=== PATIENT | female | born 1950 | race Caucasian/White ===

== ENCOUNTER 2020-09-17 17:11 | Emergency (ER) | payer MEDICARE ==
[~2020-09-17] VITALS: Ht 167.6 cm; Wt 63.5 kg
[2020-09-17 17:22] VITALS: BP 142/105
[2020-09-17] MEDS ORDERED: DIVA-78 PO (17:42)
--- NOTE | 2020-09-17 17:50 | NUR ---
Patient discharged to home in stable condition. Written and verbal after care instructions given. Patient verbalizes understanding of instruction.
== END 2020-09-17 17:50 | disposition home or self-care (01) ==
LOC: ER 17:21
DX: Z76.0 Encounter for issue of repeat prescription (principal); I10 Essential (primary) hypertension; Z86.73 Personal history of transient ischemic attack (TIA), and cerebral infarction without residual deficits

== ENCOUNTER 2020-09-28 13:16 | Inpatient (IN) | payer MEDICARE ==
[~2020-09-28] VITALS: Ht 167.6 cm; Wt 53.2 kg
[~2020-09-28 13:16] MED LIST: DIVA-78 PO
--- NOTE | 2020-09-28 13:25 | NUR ---
BIB [facility],SISTER CALLED 911 AFTER SHE BECAME AGITATED/COMBATIVE UPON GETTING INTO THEIR CAR. THE PATIENT IS ALERT AND ORIENTED TO HER NAME. DENIES PAIN. IN ROOM AIR AND DENIES SOB. RESPIRATION REGULAR AND UNLABORED. WARM BLANKET PROVIDED FOR COMFORT.
[2020-09-28 14:28] LABS: BASOPHILS # (AUTO) 0.1 /CMM (0.0-0.2); BASOPHILS % (AUTO) 1.1 % (0.0-2.0); HEMATOCRIT 46 % (33-45); HEMOGLOBIN 15.3 g/dL (11.5-14.8); MONOCYTES # (AUTO) 1.2 /CMM (0.1-1.30)
[2020-09-28 14:30] LABS: EOSINOPHILS % (AUTO) 2.9 % (0.0-6.0); LYMPHOCYTES # (AUTO) 0.9 /CMM (0.8-4.8); LYMPHOCYTES % (AUTO) 10.1 % (20.0-44.0); MEAN CORPUSCULAR HGB CONC 33 g/dl (31.0-36.0); MEAN CORPUSCULAR VOLUME 96 fL (82-100); MONOCYTES % (AUTO) 13.8 % (2.0-12.0); NEUTROPHILS # (AUTO) 6.4 /CMM (1.8-8.9); NEUTROPHILS % (AUTO) 72.1 % (43.0-81.0); PLATELET COUNT (AUTO) 145 /CMM (150-450); RED BLOOD CELL COUNT(AUTO) 4.82 MIL/uL (4.0-5.2); WHITE BLOOD COUNT (AUTO) 8.9 K/uL (4.3-11.0)
[2020-09-28 14:33] LABS: CALCIUM, SERUM 8.3 mg/dL (8.5-10.1); CARBON DIOXIDE 30 mmol/L (21-32); CHLORIDE 104 mmol/L (98-107); CREATININE 1.3 mg/dL (0.6-1.3); GLUCOSE 88 mg/dL (74-106); POTASSIUM 3.6 mmol/L (3.5-5.1); SODIUM SERUM 142 mmol/L (136-145); UREA NITROGEN, BLOOD 25 mg/dL (7-18)
[2020-09-28 14:39] LABS: ALANINE AMINOTRANSFERASE 106 U/L (12-78); ALBUMIN 2.7 g/dL (3.4-5.0); ALKALINE PHOSPHATASE 74 U/L (46-116); ASPARTATE AMINOTRANSFERASE 106 U/L (15-37); BILIRUBIN,DIRECT 0.1 mg/dL (0.0-0.2); BILIRUBIN,TOTAL 0.4 mg/dL (0.2-1.0); TOTAL PROTEIN, SERUM 6.7 g/dL (6.4-8.2)
[2020-09-28 14:41] LABS: ACETAMINOPHEN 0 ug/ml (10-30); ALCOHOL, BLOOD < 3 mg/dL (0-0)
[2020-09-28] MEDS ORDERED: LORAZEPAM INJ 2 MG/ML VIAL ONE (14:54)
[2020-09-28] MEDS ORDERED: LORAZEPAM INJ 2 MG/ML VIAL IM ONE (15:00)
[2020-09-28] MEDS ORDERED: MIDAZOLAM HCL 2 MG/2ML VIAL IV ONE ×4 (15:00→16:00)
[2020-09-28] MEDS ORDERED: MIDAZOLAM HCL 2 MG/2ML VIAL ONE (15:52)
[2020-09-28] MEDS ORDERED: IV NS 0.9% 1,000 ML IV ONE (16:00)
[2020-09-28] MEDS ORDERED: METO50TA16 PO (16:20)
[2020-09-28] MEDS ORDERED: LEVO100T9 PO (16:20)
[2020-09-28] MEDS ORDERED: ATOR80TA PO (16:20)
[2020-09-28] MEDS ORDERED: DILT30TA2 PO (16:20)
[2020-09-28] MEDS ORDERED: QUET25TA PO (16:20)
[2020-09-28] MEDS ORDERED: TRAZ-252 PO (16:20)
[2020-09-28] MEDS ORDERED: APIX5TAB PO (16:20)
--- NOTE | 2020-09-28 16:22 | NUR ---
URINE COLLECTED AND SENT IT TO THE LAB
[2020-09-28 16:31] LABS: BILIRUBIN,URINE Negative (NEGATIVE); COLOR,URINE YELLOW (YELLOW); LEUKOCYTE ESTERASE ,URINE Negative (NEGATIVE); NITRITE, URINE Negative (NEGATIVE); PROTEIN,URINE 100 mg/dl (NEGATIVE); UGLUCOSE Negative (NEGATIVE); UROBILINOGEN,URINE 0.2 EU/dL (0.2)
[2020-09-28 16:36] LABS: VALPROIC ACID 64 ug/mL (50-100)
[2020-09-28 16:56] LABS: BACTERIA,URINE Rare /HPF (None Seen); SQUAMOUS EPITHELIAL CELL,UR Few /HPF (None Seen); WBC,URINE NONE SEEN /HPF (0-3)
[2020-09-28] MEDS ORDERED: ASPIRIN 81 MG TAB.CHEW PO ONE (17:00)
[2020-09-28] MEDS ORDERED: ASPIRIN 81 MG TAB.CHEW ONE (17:32)
[2020-09-28 17:35] LABS: THYROID STIMULATING HORMONE 27.234 uIU/mL (0.358-3.74)
--- NOTE | 2020-09-28 17:45 | NUR ---
SISTER WAYNE [phone]
--- NOTE | 2020-09-28 18:04 | NUR ---
Report given to MARISELA Brian.
--- NOTE | 2020-09-28 18:42 | NUR ---
patient is transfered to [facility] per acls protocol
--- NOTE | 2020-09-28 19:05 | NUR ---
TELE/RN NOTES RECEIVED REPORT FROM NARESH NAVA RN. PATIENT CAME AT [address] [facility]. PATIENT IN NO APPARENT RESPIRATORY DISTRESS NOTED. WILL ENDORSED TO DOT ETCHER APPRENTICE FOR STIVEN AND COMPLETE ASSESSMENT.
--- NOTE | 2020-09-28 19:30 | NUR ---
RN NOTES RECEIVED PT ON BED, AWAKE BUT CONFUSED, NEEDS TO BE ADMITTED, A-FIB ON TELE MONITOR, SKIN ASSESSMENT DONE, SITTER AT BEDSIDE,BECAUSE PT. IS TRYING TO GET OUT OF BED, CALL LIGHT WITHIN LETITIA, [id number], WILL CONTINUE TO MONITOR
[2020-09-28] MEDS ORDERED: MORPHINE SULFATE INJ 2 MG/ML DISP.SYRIN IV PRN (20:30)
[2020-09-28] MEDS ORDERED: IV 1/2NS 1000 ML 1,000 ML IV PRN (20:30)
[2020-09-28] MEDS ORDERED: ONDANSETRON HCL/PF 4 MG/2 ML VIAL IVP PRN (20:30)
[2020-09-28] MEDS ORDERED: ZOLPIDEM TARTRATE 5 MG TABLET PO PRN (20:30)
[2020-09-28] MEDS ORDERED: HYDROCODONE/APAP 5/325MG TABLET PO PRN (20:30)
[2020-09-28] MEDS ORDERED: MAGNESIUM HYDROXIDE 30 ML UDC PO PRN (20:30)
[2020-09-28] MEDS ORDERED: ACETAMINOPHEN 325 MG TABLET PO PRN (20:30)
[2020-09-28] MEDS ORDERED: MAG HYDROX/AL HYDROX/SIMETH 30 ML UDC PO PRN (20:30)
[2020-09-28] MEDS ORDERED: LEVOTHYROXINE INJ 100 MCG VIAL IV SCH (20:30)
[2020-09-28] MEDS ORDERED: Z GUARD REMEDY 2 OZ OINT TP PRN (20:30)
--- NOTE | 2020-09-28 21:00 | NUR ---
RN NOTES SPOKE TO PT'S SISTER WAYNE AND ASKED SOME INFORMATION ABOUT THE PATIENT BECAUSE PT. IS CONFUSED,, PER SISTER NO LAXATIVES FOR THE PATIENT BECAUSE PATIENT STOOL IS ALREADY SOFT AND NO NEED FOR ANY LAXATIVES
--- NOTE | 2020-09-28 21:40 | NUR ---
RN NOTES INFORMED DR. CHAVEZ THAT PATIENT HAS HISTORY OF HYPOGLYCEMIA AND IF WE CAN CHANGE THE IV FLUID TO D51/2 NS AND PT. IS ALSO ON MECHANICAL SOFT DIET AT HER BOARD AND CARE. DR. CHAVEZ GAVE ME THE ORDER TO CHANGE THE IV FLUID TO D5 1/2 NS DET CHANGE TO MECH SOFT, ORDER NOTED AND CARRIED OUT
[2020-09-28] MEDS: IV D5/0.45 NACL 1,000 ML IV PRN (22:17)
[2020-09-29] VITALS: BP 126/52
[2020-09-29] MEDS ORDERED: DIVA500T2 PO ×3 (02:41)
[2020-09-29] MEDS ORDERED: DILT30TA2 PO (02:43)
[2020-09-29 04:00] VITALS: BP 140/81
--- NOTE | 2020-09-29 06:10 | NUR ---
RN NOTES PLACE A CALL TO PATIENT'S SISTER WAYNE, WAITING FOR HER TO CALL BACK
--- NOTE | 2020-09-29 06:40 | NUR ---
RN NOTES PATIENT WAS TRYING TO GET OUT OF BED, SPOKE TO DR. CHAVEZ AND GOT AN ORDER OF BILATERAL SOFT WRIST RESTRAINTS, ORDER NOTED AND CARRIED OUT
--- NOTE | 2020-09-29 07:00 | NUR ---
UPPER STITCHER OPENING NOTES RECEIVED PT AWAKE IN BED AT THIS TIME. CONFUSED. NO SOB NOTED, NO S/O PAIN OR FACIAL GRIMACE NOTED, NO S/S OF ANY ACUTE DISTRESS NOTED. STABLE ON RA. PT NOTED ON EXTERNAL SUPERVISOR PLATING AND POINT ASSEMBLY READING A-FIB. IV ACCESS IN RAC G#[address], PATENT AND FLUSHING WELL. PT NOTED ON RESTRAINS WITH 1:1 SITTER. SKIN AROUND RESTRAINS INTACT, GOOD CIRCULATION NOTED, PULSES PRESENT BILATERALLY, CAPILLARY REFILL <3SECONDS. ASPIRATION AND SAFETY PRECAUTIONS IN PLACE AND MAINTAINED AT ALL TIMES. BED IN LOWEST LOCKED POSITION, HOB ELEVATED, SIDE RAILS UP X2, CALL LIGHT AND TABLE WITHIN REACH. WILL CONTINUE TO MONITOR
--- NOTE | 2020-09-29 07:05 | NUR ---
RN NOTES SPIKE TO PATIENT'S SISTER WAYNE KAMARA AND GAVE A TELEPHONE CONSENT FOR MRI OF THE BRAIN AND CTA BRAIN/CAROTID, WITNESSED BY THE CHARGE NURSE, FRACISCO
[2020-09-29] MEDS ORDERED: CT SWABBABLE VALVE TRANS SET 1 EA INFUS.SET MC ONE (07:55)
[2020-09-29] MEDS ORDERED: IOHEXOL-350 100 ML VIAL IV ONE ×2 (07:55→09:44)
[2020-09-29] MEDS ORDERED: IV NS 0.9% 250 ML IV ONE (07:56)
[2020-09-29 08:00] VITALS: BP 143/77
--- NOTE | 2020-09-29 08:08 | NUR ---
REGARDING CTA BRAIN/CAROTID, RN OBTAINED CONSENT FROM FAMILY. PT CUT OFF THE IV ACCESS AND VERBALLY REFUSED CT SCAN.
--- NOTE | 2020-09-29 08:18 | NUR ---
MRI IS ON HOLD FOR NOW PER DR. PURVIS.
[2020-09-29] MEDS: PANTOPRAZOLE 40 MG TABLET.DR PO SCH (08:20)
[2020-09-29] MEDS ORDERED: OLANZAPINE 10 MG VIAL IM ONE ×2 (08:30→23:30)
[2020-09-29] MEDS ORDERED: LEVOTHYROXINE SODIUM 100 MCG TABLET PO SCH (09:00)
[2020-09-29] MEDS: METOPROLOL TARTRATE 50 MG TABLET PO SCH ×2 (09:08→17:49)
[2020-09-29] MEDS: ASPIRIN EC 81 MG TABLET.DR PO SCH (09:08)
[2020-09-29] MEDS: DILTIAZEM HCL 30 MG TABLET PO SCH ×4 (09:08→21:07)
[2020-09-29] MEDS: LEVOTHYROXINE INJ 100 MCG VIAL IV SCH (09:36)
[2020-09-29] MEDS: APIXABAN 5 MG TABLET PO SCH ×2 (10:32→17:48)
--- NOTE | 2020-09-29 11:35 | NUR ---
DEBBIE([phone]), PT'S SISTER CALLED AT THIS TIME AND WAS UPDATED,WILL CONTINUE TO MONITOR
[2020-09-29 11:49] LABS: BASOPHILS # (AUTO) 0.1 /CMM (0.0-0.2); BASOPHILS % (AUTO) 0.7 % (0.0-2.0); EOSINOPHILS % (AUTO) 3.7 % (0.0-6.0); HEMATOCRIT 45 % (33-45); HEMOGLOBIN 14.8 g/dL (11.5-14.8); LYMPHOCYTES # (AUTO) 1.2 /CMM (0.8-4.8); LYMPHOCYTES % (AUTO) 12.5 % (20.0-44.0); MEAN CORPUSCULAR HGB CONC 33 g/dl (31.0-36.0); MEAN CORPUSCULAR VOLUME 96 fL (82-100); MONOCYTES # (AUTO) 1.4 /CMM (0.1-1.30); NEUTROPHILS # (AUTO) 6.4 /CMM (1.8-8.9); NEUTROPHILS % (AUTO) 68.1 % (43.0-81.0); PLATELET COUNT (AUTO) 149 /CMM (150-450); RED BLOOD CELL COUNT(AUTO) 4.73 MIL/uL (4.0-5.2); WHITE BLOOD COUNT (AUTO) 9.5 K/uL (4.3-11.0)
[2020-09-29 12:00] VITALS: BP 132/56
[2020-09-29 12:16] LABS: ALBUMIN 2.6 g/dL (3.4-5.0); BILIRUBIN,DIRECT 0.1 mg/dL (0.0-0.2); BILIRUBIN,TOTAL 0.5 mg/dL (0.2-1.0); CALCIUM, SERUM 8.2 mg/dL (8.5-10.1); CREATININE 1.1 mg/dL (0.6-1.3); MAGNESIUM 1.8 mg/dL (1.8-2.4); PHOSPHORUS 3.5 mg/dL (2.5-4.9); POTASSIUM 3.6 mmol/L (3.5-5.1); TOTAL PROTEIN, SERUM 6.3 g/dL (6.4-8.2)
--- NOTE | 2020-09-29 12:31 | NUR ---
IV ACCESS INSERTED IN RIGHT WRIST G22 AT THIS TIME. GOOD BLOOD RETURN NOTED. IV INTACT, PATENT AND FLUSHING WELL. PATIENT TOLERATED WELL. WILL CONTINUE MONITORING.
[2020-09-29] MEDS: IV D5/0.45 NACL 1,000 ML IV PRN (12:37)
[2020-09-29] MEDS: DIVALPROEX SODIUM 250 MG TABLET.DR PO SCH (13:06)
[2020-09-29] MEDS: OLANZAPINE 2.5 MG TABLET PO SCH ×2 (13:07→17:46)
[2020-09-29 13:13] LABS: THYROID STIMULATING HORMONE 35.636 uIU/mL (0.358-3.74)
--- NOTE | 2020-09-29 15:30 | NUR ---
DR SLOAN TELE-CONSULTED PATIENT AT THIS. WILL CONTINUE WITH PLAN OF CARE
[2020-09-29 16:00] VITALS: BP 132/80
[2020-09-29] MEDS: ENSURE ENLIVE 237 ML LIQUID (VANILLA) PO SCH (17:57)
--- NOTE | 2020-09-29 18:39 | NUR ---
MS RN CLOSING NOTES PT AWAKE IN BED AT THIS TIME. PT REMAINED STABLE THROUGHOUT SHIFT. ALL CARE, NEEDS, MEDICATIONS AND TREATMENT ADMINISTERED ANTICIPATED PER ORDER. PT KEPT CLEAN AND DRY. 1:1 SITTER AT BEDSIDE. ASPIRATION, SEIZURE AND SAFETY PRECAUTIONS IN PLACE AND MAINTAINED AT ALL TIMES. BED IN LOWEST LOCKED POSITION, HOB ELEVATED, SIDE RAILS UPX2, CALL LIGHT AND TABLE WITHIN REACH. WILL ENDORSE TO 2ND PRESSMAN NURSE FOR STIVEN
--- NOTE | 2020-09-29 20:30 | NUR ---
RN NOTES RECEIVED PT AWAKE ON BED SITTER AT BEDSIDE, , ON BILATERAL SOFT WRIST RESTRAINTS, CIRCULATION CHECKED , NOTICED IV ON THE RIGHT WRIST IS INFILTRATED, SIDERAILS UPX2, WILL CONTINUE TO MONITOR
[2020-09-29] MEDS: ATORVASTATIN 40 MG TABLET PO SCH (21:08)
[2020-09-29] MEDS: DIVALPROEX SODIUM 500 MG TABLET.DR PO SCH (21:12)
[2020-09-29] MEDS: OLANZAPINE 5 MG TABLET PO SCH (21:12)
[2020-09-29] MEDS ORDERED: TRAZODONE 50 MG TABLET PO SCH (22:00)
[2020-09-29] MEDS ORDERED: QUETIAPINE FUMARATE 25 MG TABLET PO SCH (22:00)
--- NOTE | 2020-09-29 22:00 | NUR ---
DR. BELTRAN CALLED AND REQUESTED AN UPDATE ON PT'S AGITATION. INFORMED DR. BELTRAN THAT PT SHOWED NO SIGNS OF AGITATION AT THE TIME. WILL CONTINUE TO MONITOR.
--- NOTE | 2020-09-29 22:00 | NUR ---
PCB DESIGN ENGINEER OPENING NOTE RECEIVED PT AWAKE IN BED AT THIS TIME. PT IS CONFUSED. NO SOB NOTED. NO S/O PAIN OR FACIAL GRIMACE NOTED. NO S/S OF RESPIRATORY DISTRESS NOTED. PT IS STABLE ON ROOM AIR. PT NOTED ON EXTERNAL LIBRARY ATTENDANT READING A-FIB 113. IV ACCESS IN RAC 20 G. IV IS INTACT, PATENT, AND FLUSHING WELL. PT NOTED ON RESTRAINTS WITH 1:1 SITTER. SKIN AROUND RESTRAINTS INTACT, GOOD CIRCULATION NOTED, PULSES PRESENT BILATERALLY, CAPILLARY REFILL <3 SECONDS. SAFETY AND ASPIRATION PRECAUTIONS IN PLACE AND MAINTAINED AT ALL TIMES. BED IN LOWEST LOCKED POSITION, HOB ELEVATED, SIDE RAILS UP X2, CALL LIGHT AND TABLE WITHIN REACH. WILL CONTINUE TO MONITOR.
--- NOTE | 2020-09-29 23:10 | NUR ---
RN NOTES PATIENT WAS SO RESTLESS AND TRYING TO GET OUT OF BED, GOT AN ORDER FROM DR. SCOTT RODRÍGUEZ 5 MG IM, ANOTHER 5 MG IM IF NOT WORKING , ORDER NOTED AND CARRIED OUT
[2020-09-30] VITALS: BP 138/71
--- NOTE | 2020-09-30 00:18 | NUR ---
PT SHOWED SIGNS OF AGITATION AND RESTLESSNESS. ADMINISTERED ZYPREXA 5 MG IM IN RIGHT DELTOID ONCE PER DR ORDER. WILL CONTINUE TO MONITOR.
[2020-09-30 04:00] VITALS: BP 121/59
--- NOTE | 2020-09-30 05:00 | NUR ---
RN NOTES NEW IV LINE INSERTED ON THE LEFT WRIST GAUGE 22
[2020-09-30] MEDS ORDERED: OLANZAPINE 10 MG VIAL IM ONE (05:30)
--- NOTE | 2020-09-30 05:35 | NUR ---
RN NOTES PT WAS SO AGITATED AND TRYING TO GET OUT OF BED , KICKING THE SITTER, ZYPREXA 5 MG IM GIVEN ORDERED, V/S STABLE
[2020-09-30] MEDS: IV D5/0.45 NACL 1,000 ML IV PRN ×2 (07:00→20:48)
--- NOTE | 2020-09-30 07:00 | NUR ---
REAL ESTATE PORTFOLIO MANAGER OPENING NOTES RECEIVED PT AWAKE IN BED AT THIS TIME. PT IS CONFUSED. NO SOB NOTED, NO S/O PAIN, NO GRIMACING NOTED, NO S/S OF ANY APPARENT DISTRESS NOTED. PT IS STABLE ON RA. PT NOTED ON EXTERNAL SYSTEMS INTEGRATION ENGINEER READING A-FIB. IV ACCESS NOTED IN LEFT WRIST G#22 INTACT, PATENT AND FLUSHING WELL. PT NOTED ON RESTRAINS WITH 1:1 SITTER. SKIN AROUND RESTRAINS INTACT, GOOD CIRCULATION NOTED, PULSES PRESENT BILATERALLY, CAPILLARY REFILL <3SECONDS. ASPIRATION AND SAFETY PRECAUTIONS IN PLACE AND MAINTAINED AT ALL TIMES. BED IN LOWEST LOCKED POSITION, HOB ELEVATED, SIDE RAILS UP X2, CALL LIGHT AND TABLE WITHIN REACH. WILL CONTINUE TO MONITOR
--- NOTE | 2020-09-30 07:18 | NUR ---
LICENSED EMBALMER SUPERVISOR CLOSING NOTE PT IS AWAKE IN BED AT THIS TIME. PT IS CONFUSED AND AGITATED. NO SOB NOTED. NO S/O PAIN OR FACIAL GRIMACE NOTED. NO S/S OF RESPIRATORY DISTRESS NOTED. PT IS STABLE ON ROOM AIR. PT NOTED ON EXTERNAL JACKAROO READING A-FIB. IV ACCESS IN LEFT WRIST #22 G. IV IS INTACT, PATENT, AND FLUSHING WELL. PT NOTED ON RESTRAINTS WITH 1:1 SITTER. SKIN AROUND RESTRAINTS INTACT, GOOD CIRCULATION NOTED. ALL NEEDS HAVE BEEN MET. SAFETY PRECAUTIONS MAINTAINED AT ALL TIMES. BED IN LOWEST LOCKED POSITION, HOB ELEVATED, SIDE RAILS UP X2. CALL LIGHT AND TABLE WITHIN REACH. WILL ENDORSE TO ONCOMING NURSE FOR CONTINUITY OF CARE
[2020-09-30] MEDS: PANTOPRAZOLE 40 MG TABLET.DR PO SCH (08:27)
--- NOTE | 2020-09-30 08:28 | NUR ---
WOUND CARE CONSULT: PT PRESENTS WITH LEFT FOOT WOUND, PRESENT ON ADMISSION. RECOMMEND DPM CONSULT. DR MERRITT NOTIFIED OF CONSULT REQUEST. PT IS INCONTINENT. SITTER AT BEDSIDE. RECOMMENDATIONS MADE FOR SKIN PROTECTION. DISCUSSED WITH NURSING STAFF. PT IS ON JACOBO ISOFLEX LOW AIRLOSS BED. MD IN AGREEMENT WITH PLAN OF CARE.
[2020-09-30] MEDS: LEVOTHYROXINE INJ 100 MCG VIAL IV SCH (08:29)
[2020-09-30] MEDS: ASPIRIN EC 81 MG TABLET.DR PO SCH (08:31)
[2020-09-30] MEDS: DILTIAZEM HCL 30 MG TABLET PO SCH ×4 (08:32→20:31)
[2020-09-30] MEDS: METOPROLOL TARTRATE 50 MG TABLET PO SCH ×2 (08:34→17:20)
[2020-09-30] MEDS: ENSURE ENLIVE 237 ML LIQUID (VANILLA) PO SCH ×3 (08:35→17:18)
[2020-09-30] MEDS: DIVALPROEX SODIUM 250 MG TABLET.DR PO SCH ×2 (08:58→13:05)
[2020-09-30 09:25] LABS: BASOPHILS % (AUTO) 0.6 % (0.0-2.0); EOSINOPHILS % (AUTO) 4.2 % (0.0-6.0); HEMATOCRIT 45 % (33-45); LYMPHOCYTES # (AUTO) 0.9 /CMM (0.8-4.8); LYMPHOCYTES % (AUTO) 12.2 % (20.0-44.0); MEAN CORPUSCULAR HGB CONC 34 g/dl (31.0-36.0); MEAN CORPUSCULAR VOLUME 95 fL (82-100); MONOCYTES # (AUTO) 1.4 /CMM (0.1-1.30); MONOCYTES % (AUTO) 18.1 % (2.0-12.0); NEUTROPHILS % (AUTO) 64.9 % (43.0-81.0); PLATELET COUNT (AUTO) 124 /CMM (150-450); RED BLOOD CELL COUNT(AUTO) 4.68 MIL/uL (4.0-5.2); WHITE BLOOD COUNT (AUTO) 7.7 K/uL (4.3-11.0)
[2020-09-30 09:39] LABS: CALCIUM, SERUM 8.4 mg/dL (8.5-10.1); CREATININE 1.1 mg/dL (0.6-1.3); POTASSIUM 3.5 mmol/L (3.5-5.1)
[2020-09-30] MEDS: OLANZAPINE 2.5 MG TABLET PO SCH ×3 (09:43→17:27)
--- NOTE | 2020-09-30 10:20 | NUR ---
DEBBIE([phone]), PT'S SISTER CALLED AT THIS TIME AND WAS UPDATED,WILL CONTINUE TO MONITOR
[2020-09-30] MEDS: APIXABAN 5 MG TABLET PO SCH ×2 (11:03→17:21)
[2020-09-30 11:42] LABS: ALBUMIN 2.5 g/dL (3.4-5.0); BILIRUBIN,DIRECT 0.1 mg/dL (0.0-0.2); BILIRUBIN,TOTAL 0.5 mg/dL (0.2-1.0); TOTAL PROTEIN, SERUM 6.2 g/dL (6.4-8.2)
[2020-09-30 12:24] LABS: EOSINOPHILS % (MANUAL) 3 % (0-4); LYMPHOCYTES % (MANUAL) 15 % (16-48); MONOCYTES % (MANUAL) 17 % (0-11.0); NEUTROPHILS % (MANUAL) 65 (42-76)
--- NOTE | 2020-09-30 18:44 | NUR ---
CLUB LOUNGE ATTENDANT CLOSING NOTES PT AWAKE IN BED AT THIS TIME. PT REMAINED STABLE THROUGHOUT SHIFT. ALL CARE, NEEDS, MEDICATIONS AND TREATMENT ADMINISTERED ANTICIPATED PER ORDER. PT KEPT CLEAN AND DRY. 1:1 SITTER AT BEDSIDE. WAYNE PT'S SITTER AT BEDSIDE. WOUND CARE ADMINISTERED PER ORDER ASPIRATION, SEIZURE AND SAFETY PRECAUTIONS IN PLACE AND MAINTAINED AT ALL TIMES. BED IN LOWEST LOCKED POSITION, HOB ELEVATED, SIDE RAILS UPX2, CALL LIGHT AND TABLE WITHIN REACH. WILL ENDORSE TO PHOTOGRAPHER PORTRAIT NURSE FOR STIVEN
[2020-09-30 20:00] VITALS: BP 159/89
--- NOTE | 2020-09-30 20:00 | NUR ---
RN NOTES PM SHIFT PATIENT IN BED, ON 2LPM VIA NC, DENIES PAIN. RAMBLING, CONFUSED, AGITATED, BILATERAL WRIST RESTRAINTS, NO SKIN BREAKDOWN, SITTER AT THE BEDSIDE.
[2020-09-30] MEDS: OLANZAPINE 5 MG TABLET PO SCH (21:33)
[2020-09-30] MEDS: ATORVASTATIN 40 MG TABLET PO SCH (21:34)
[2020-09-30] MEDS: DIVALPROEX SODIUM 500 MG TABLET.DR PO SCH (21:34)
[2020-09-30] MEDS ORDERED: TEMAZEPAM 7.5 MG CAPSULE PO PRN (22:00)
[2020-09-30] MEDS ORDERED: LORAZEPAM INJ 2 MG/ML VIAL IM PRN (22:00)
--- NOTE | 2020-09-30 22:04 | NUR ---
RN NOTES PM SHIFT DR. BELTRAN CALLED ASKING FOR MRI RESULTS. PER REPORT, MRI NOT DONE DUE TO PATIENT NOT COOPERATIVE AND AGITATED, UNABLE TO FOLLOW DIRECTIONS. NEW ORDERS OF RESTORIL, ATIVAN IM DAILY PRN FOR SEVERE AGITATION AND ATIVAN PO FOR ANXIETY. ORDERS NOTED AND CARRIED OUT.
[2020-09-30 23:45] VITALS: BP 137/67
[2020-10-01 06:48] LABS: BASOPHILS # (AUTO) 0.1 /CMM (0.0-0.2); BASOPHILS % (AUTO) 0.7 % (0.0-2.0); EOSINOPHILS % (AUTO) 7.3 % (0.0-6.0); HEMATOCRIT 44 % (33-45); HEMOGLOBIN 14.7 g/dL (11.5-14.8); LYMPHOCYTES # (AUTO) 1.3 /CMM (0.8-4.8); LYMPHOCYTES % (AUTO) 17.2 % (20.0-44.0); MEAN CORPUSCULAR HGB CONC 33 g/dl (31.0-36.0); MEAN CORPUSCULAR VOLUME 96 fL (82-100); MONOCYTES # (AUTO) 1.3 /CMM (0.1-1.30); MONOCYTES % (AUTO) 17.1 % (2.0-12.0); NEUTROPHILS # (AUTO) 4.3 /CMM (1.8-8.9); NEUTROPHILS % (AUTO) 57.7 % (43.0-81.0); PLATELET COUNT (AUTO) 118 /CMM (150-450); RED BLOOD CELL COUNT(AUTO) 4.58 MIL/uL (4.0-5.2); WHITE BLOOD COUNT (AUTO) 7.5 K/uL (4.3-11.0)
[2020-10-01] MEDS: PANTOPRAZOLE 40 MG TABLET.DR PO SCH ×2 (07:30→09:53)
[2020-10-01 08:00] VITALS: BP 155/91
[2020-10-01] MEDS: DIVALPROEX SODIUM 250 MG TABLET.DR PO SCH ×3 (08:00→13:00)
[2020-10-01 08:14] LABS: BAND % (MANUAL) 2 % (0.0-5.0); EOSINOPHILS % (MANUAL) 8 % (0-4); LYMPHOCYTES % (MANUAL) 16 % (16-48); MONOCYTES % (MANUAL) 13 % (0-11.0); NEUTROPHILS % (MANUAL) 61 (42-76)
--- NOTE | 2020-10-01 08:45 | NUR ---
Resident alert and awake in bed. Oriented to self only. Speech disoriented. Sitter with patient due to fall risk not knowing limits. No agitation noted at this time.
[2020-10-01] MEDS: METOPROLOL TARTRATE 50 MG TABLET PO SCH ×3 (09:00→17:12)
[2020-10-01] MEDS: OLANZAPINE 2.5 MG TABLET PO SCH ×3 (09:00→17:13)
[2020-10-01] MEDS: ASPIRIN EC 81 MG TABLET.DR PO SCH ×2 (09:00→09:53)
[2020-10-01] MEDS: ENSURE ENLIVE 237 ML LIQUID (VANILLA) PO SCH ×3 (09:00→17:26)
[2020-10-01] MEDS: DILTIAZEM HCL 30 MG TABLET PO SCH ×5 (09:00→21:00)
[2020-10-01] MEDS: APIXABAN 5 MG TABLET PO SCH ×3 (09:00→17:14)
[2020-10-01] MEDS: LORAZEPAM 0.5 MG TABLET PO PRN (09:05)
[2020-10-01 09:09] LABS: CALCIUM, SERUM 8.3 mg/dL (8.5-10.1); POTASSIUM 4.1 mmol/L (3.5-5.1)
[2020-10-01] MEDS ORDERED: HALOPERIDOL DECANOATE IM 100 MG/ML AMPUL IM ONE (10:00)
[2020-10-01] MEDS ORDERED: LORAZEPAM INJ 2 MG/ML VIAL IM ONE (10:00)
[2020-10-01] MEDS ORDERED: OLANZAPINE 10 MG VIAL IM ONE (10:00)
[2020-10-01] MEDS ORDERED: BENZTROPINE MESYLATE (2MG/2ML) 2 MG/2 ML AMPUL IM ONE ×2 (10:00)
[2020-10-01] MEDS ORDERED: HALOPERIDOL LACTATE INJ 5 MG/ML VIAL IM ONE (10:00)
--- NOTE | 2020-10-01 10:00 | NUR ---
PHOTOSTATIC COPY MAKER NOTES PT IN BED, AWAKE, CONFUSED, AGITATED, EPISODES OF SCREAMING, UNABLE TO KEEP STILL, FALL RISK, SAFETY PRECAUTIONS OBSERVED, SITTER AT BEDSIDE, SEEN BY DR. BELTRAN, ORDERS GIVEN, NOTED AND CARRIED OUT.
[2020-10-01] MEDS: LEVOTHYROXINE INJ 100 MCG VIAL IV SCH (10:06)
[2020-10-01 12:00] VITALS: BP 114/79
[2020-10-01] MEDS ORDERED: IOHEXOL-350 100 ML VIAL IV ONE (12:09)
--- NOTE | 2020-10-01 12:15 | NUR ---
LEAD MASSAGE THERAPIST NOTES PT IN BED, ASLEEP, EASY TO AROUSE, CALM AT THIS TIME, NEW IV INSERTED BY ER STAFF, LAC G20, PT PICKED UP BY STAFF FOR CTCA BRAIN AND CAROTID.
--- NOTE | 2020-10-01 13:20 | NUR ---
MANAGER INTEGRITY NOTES 1300 zyprexa and depakote not administered due to sleepiness/drowsiness. Cardizem not administered as BP 114/79. Pt refused ensure at 1300 per patient "Im sleeping"
[2020-10-01] MEDS: IV D5/0.45 NACL 1,000 ML IV PRN (14:23)
--- NOTE | 2020-10-01 15:01 | NUR ---
SCROLL SHEAR OPERATOR NOTES DR. FLORES INFORMED OF PT'S CTA HEAD AND NECK RESULTS, PT ON ELIQUIS BUT WOULD NOT TAKE HER ORAL MEDS AND SPITS IT, INFORMED, PT ASLEEP RIGHT NOW, NO S/S OF DISTRESS.
[2020-10-01 16:00] VITALS: BP 139/81
--- NOTE | 2020-10-01 18:26 | NUR ---
FORK LIFT TRUCK OPERATOR NOTES Patient is alert and oriented to self only. Tolerated all 1700 medications and ensure. Ate 0% of lunch and 20% of dinner. Continues on IVF D5 1/2NS at 75cc/hr. Urine is yellow and clear with no foul odor. In the morning patient was agitated, yelling, screaming, hitting, kicking, refused medications. Patient has soft wrist restraints applied d/t pulling at IV sites and combativeness. Risk for injury to self. Restraints taken off qhour and ROM activities performed. Patient calmed after IM injections Ativan, haldol, and cogentin. Slept calmly. Is currently awake and mumbling but without acute agitation.
--- NOTE | 2020-10-01 19:38 | NUR ---
RN NOTES Patient is alert and oriented to self only. on IVF D5 1/2NS at 75cc/hr. Urine is yellow and clear with no foul odor. Patient has soft wrist restraints applied d/t pulling at IV sites and combativeness. Risk for injury to self. circulation check done . will continue to monitor.
[2020-10-01] MEDS: ATORVASTATIN 40 MG TABLET PO SCH (21:04)
[2020-10-01] MEDS: OLANZAPINE 5 MG TABLET PO SCH ×2 (21:04→22:00)
[2020-10-01] MEDS: DIVALPROEX SODIUM 500 MG TABLET.DR PO SCH ×2 (21:04→22:00)
[2020-10-02 01:08] VITALS: BP 110/72
[2020-10-02] MEDS: IV D5/0.45 NACL 1,000 ML IV PRN (02:33)
[2020-10-02 06:23] LABS: BASOPHILS # (AUTO) 0.1 /CMM (0.0-0.2); BASOPHILS % (AUTO) 0.8 % (0.0-2.0); EOSINOPHILS % (AUTO) 5.9 % (0.0-6.0); HEMATOCRIT 45 % (33-45); HEMOGLOBIN 14.9 g/dL (11.5-14.8); LYMPHOCYTES # (AUTO) 1.2 /CMM (0.8-4.8); LYMPHOCYTES % (AUTO) 10.9 % (20.0-44.0); MEAN CORPUSCULAR HGB CONC 33 g/dl (31.0-36.0); MEAN CORPUSCULAR VOLUME 97 fL (82-100); MONOCYTES # (AUTO) 1.9 /CMM (0.1-1.30); MONOCYTES % (AUTO) 17.6 % (2.0-12.0); NEUTROPHILS # (AUTO) 7.2 /CMM (1.8-8.9); NEUTROPHILS % (AUTO) 64.8 % (43.0-81.0); PLATELET COUNT (AUTO) 141 /CMM (150-450); RED BLOOD CELL COUNT(AUTO) 4.67 MIL/uL (4.0-5.2); WHITE BLOOD COUNT (AUTO) 11.1 K/uL (4.3-11.0)
[2020-10-02 06:32] LABS: CALCIUM, SERUM 8.7 mg/dL (8.5-10.1); POTASSIUM 4.9 mmol/L (3.5-5.1)
--- NOTE | 2020-10-02 07:04 | NUR ---
RN NOTES Patient is alert and oriented to self only. on IVF D5 1/2NS at 75cc/hr. Urine is yellow and clear with no foul odor. Patient has soft wrist restraints applied d/t pulling at IV sites and combativeness. Risk for injury to self. circulation check done . will ENDORSE CARE.
--- NOTE | 2020-10-02 07:10 | NUR ---
MS RN NOTES RECEIVED PATIENT IN BED ALERT ORIENTED X1 . BILATERAL SOFT RESTRAINT CHECK WITH GOOD CIRCULATION. NO ACUTE DISTRESS NOTED. BREATHING UNLABORED. NO SOB NOTED. NO IV ACCESS AT TIME PATIENT REFUSED TO START NEW LINE, WILL TRY AGAIN. SAFETY MEASURES IN PLACE. CALL LIGHT WITHIN REACH. WILL CONTINUE TO MONITOR ACCORDINGLY.
[2020-10-02] MEDS: LEVOTHYROXINE INJ 100 MCG VIAL IV SCH (07:30)
--- NOTE | 2020-10-02 07:45 | NUR ---
MS ANTONIO NOTES PATIENT REFUSED IV LINE INSERTED, REFUSED SYNTHROID MEDICATION , DR JAN FLORES PRESENT ON THE FLOOR AWARE. Addendum: 10/02/20 at 1554 by MELISSA COTTRELL RN DISREGARD ABOVE NOTES: ERROR
--- NOTE | 2020-10-02 07:45 | NUR ---
MS RN NOTES PATIENT REFUSED IV LINE INSERTED, REFUSED SYNTHROID MEDICATION , DR JAN FLORES PRESENT ON THE FLOOR AWARE.
[2020-10-02] MEDS: ASPIRIN EC 81 MG TABLET.DR PO SCH (08:00)
[2020-10-02] MEDS: APIXABAN 5 MG TABLET PO SCH ×2 (08:00→17:32)
[2020-10-02] MEDS: OLANZAPINE 2.5 MG TABLET PO SCH (08:01)
[2020-10-02] MEDS: DIVALPROEX SODIUM 250 MG TABLET.DR PO SCH ×2 (08:01→12:28)
[2020-10-02] MEDS: PANTOPRAZOLE 40 MG TABLET.DR PO SCH (08:01)
[2020-10-02] MEDS: ENSURE ENLIVE 237 ML LIQUID (VANILLA) PO SCH ×3 (08:04→17:31)
[2020-10-02] MEDS: DILTIAZEM HCL 30 MG TABLET PO SCH ×4 (08:13→21:53)
[2020-10-02] MEDS: METOPROLOL TARTRATE 50 MG TABLET PO SCH ×3 (08:13→17:31)
[2020-10-02] MEDS: LORAZEPAM 0.5 MG TABLET PO PRN (10:01)
[2020-10-02 10:22] LABS: BAND % (MANUAL) 2 % (0.0-5.0); EOSINOPHILS % (MANUAL) 10 % (0-4); LYMPHOCYTES % (MANUAL) 10 % (16-48); MONOCYTES % (MANUAL) 23 % (0-11.0); NEUTROPHILS % (MANUAL) 55 (42-76)
--- NOTE | 2020-10-02 12:03 | NUR ---
MS RN NOTES PATIENT SEEN AND EVALUATED BY DR BELTRAN , TOY WITH NEW ORDERS TO DISCONTINUE ZyPREXA 2.5 MG PO TABLET TID CHANGE TO ZyPREXA 5 MG TABLET PO QD1PM , ORDER CLARIFIED AND READ BACK WITH MD, NOTED AND CARRIED OUT
[2020-10-02] MEDS: OLANZAPINE 5 MG TABLET PO SCH ×2 (12:29→21:21)
--- NOTE | 2020-10-02 19:00 | NUR ---
MS RN NOTES PATIENT IN BED ALERT ORIENTED X1. NO ACUTE DISTRESS NOTED. BREATHING UNLABORED. NO SOB NOTED. NEEDS ATTENDED AND ANTICIPATED. SAFETY MEASURES IN PLACE. CALL LIGHT WITHIN REACH. WILL ENDORSE TO NIGHT NURSE FOR CONTINUITY OF CARE.
--- NOTE | 2020-10-02 19:28 | NUR ---
RN NOTES PT ASLEEP IN BED ABLE TO BE WOKEN UP EASILY. NO SIGNS OF PAIN OR DISTRESS NOTED AT THIS TIME. NO RESPIRATORY DISTRESS NOTED. SITTER AT BEDSIDE BILATERAL SOFT WRIST RESTRAINTS ON CIRCULATION CHECK DONE. ALL NURSING NEEDS MET AT THIS TIME WILL CONTINUE TO MONITOR.
[2020-10-02 20:00] VITALS: BP 112/75
[2020-10-02] MEDS: LEVOTHYROXINE SODIUM 112 MCG TABLET PO SCH (20:11)
[2020-10-02] MEDS: LEVETIRACETAM (250 MG) 250 MG TABLET PO SCH (21:21)
[2020-10-02] MEDS: ATORVASTATIN 40 MG TABLET PO SCH (21:22)
[2020-10-02] MEDS: DIVALPROEX SODIUM 500 MG TABLET.DR PO SCH (21:22)
[2020-10-03] VITALS: BP 138/89
[2020-10-03 04:00] VITALS: BP 122/73
--- NOTE | 2020-10-03 04:06 | NUR ---
RN NOTES PT AGITATED UNABLE TO TABLE PHOTOS WILL TRY AGAIN LATER. WILL CONTINUE TO MONITOR.
[2020-10-03 05:20] VITALS: BP 122/73
--- NOTE | 2020-10-03 06:38 | NUR ---
RN NOTES PT ASLEEP IN BED ABLE TO BE WOKEN UP EASILY. NO SIGNS OF PAIN OR DISTRESS NOTED AT THIS TIME. NO RESPIRATORY DISTRESS NOTED. SITTER AT BEDSIDE BILATERAL SOFT WRIST RESTRAINTS OFF AT THIS TIME.CIRCULATION CHECK DONE.ALL NURSING NEEDS MET AT THIS TIME WILL ENDORSE CARE TO DAY SHIFT NURSE.
--- NOTE | 2020-10-03 07:00 | NUR ---
ADVICE LINE RN OPENING NOTES RECEIVED PT AWAKE IN BED AT THIS TIME. PT IS CONFUSED. NO SOB NOTED, NO S/O PAIN, NO GRIMACING NOTED, NO S/S OF ANY APPARENT DISTRESS NOTED. PT IS STABLE ON RA. PT NOTED ON EXTERNAL LEVELER READING A-FIB. NO IV ACCESS NOTED. PER FRUIT OR NUT FARMWORKER NURSE, MADE AWARE. PT NOTED ON RESTRAINS WITH 1:1 SITTER. SKIN AROUND RESTRAINS INTACT, GOOD CIRCULATION NOTED, PULSES PRESENT BILATERALLY, CAPILLARY REFILL <3SECONDS. ASPIRATION AND SAFETY PRECAUTIONS IN PLACE AND MAINTAINED AT ALL TIMES. BED IN LOWEST LOCKED POSITION, HOB ELEVATED, SIDE RAILS UP X2, CALL LIGHT AND TABLE WITHIN REACH. WILL CONTINUE TO MONITOR
[2020-10-03 07:20] LABS: BASOPHILS # (AUTO) 0.1 /CMM (0.0-0.2); BASOPHILS % (AUTO) 0.7 % (0.0-2.0); EOSINOPHILS % (AUTO) 8.3 % (0.0-6.0); HEMATOCRIT 45 % (33-45); HEMOGLOBIN 14.8 g/dL (11.5-14.8); LYMPHOCYTES # (AUTO) 1.7 /CMM (0.8-4.8); LYMPHOCYTES % (AUTO) 18.7 % (20.0-44.0); MEAN CORPUSCULAR HGB CONC 33 g/dl (31.0-36.0); MEAN CORPUSCULAR VOLUME 97 fL (82-100); MONOCYTES # (AUTO) 1.5 /CMM (0.1-1.30); MONOCYTES % (AUTO) 16.5 % (2.0-12.0); NEUTROPHILS # (AUTO) 5.1 /CMM (1.8-8.9); NEUTROPHILS % (AUTO) 55.8 % (43.0-81.0); PLATELET COUNT (AUTO) 145 /CMM (150-450); RED BLOOD CELL COUNT(AUTO) 4.64 MIL/uL (4.0-5.2); WHITE BLOOD COUNT (AUTO) 9.1 K/uL (4.3-11.0)
[2020-10-03 08:00] VITALS: BP 131/100
[2020-10-03 08:17] LABS: ALANINE AMINOTRANSFERASE 195 U/L (12-78); ALBUMIN 2.6 g/dL (3.4-5.0); ALKALINE PHOSPHATASE 80 U/L (46-116); ASPARTATE AMINOTRANSFERASE 156 U/L (15-37); BILIRUBIN,TOTAL 0.7 mg/dL (0.2-1.0); CALCIUM, SERUM 8.5 mg/dL (8.5-10.1); CARBON DIOXIDE 33 mmol/L (21-32); CHLORIDE 108 mmol/L (98-107); CREATININE 1.2 mg/dL (0.6-1.3); GLUCOSE 79 mg/dL (74-106); POTASSIUM 4.1 mmol/L (3.5-5.1); SODIUM SERUM 146 mmol/L (136-145); TOTAL PROTEIN, SERUM 6.3 g/dL (6.4-8.2); UREA NITROGEN, BLOOD 15 mg/dL (7-18)
[2020-10-03] MEDS: LEVOTHYROXINE SODIUM 112 MCG TABLET PO SCH (08:24)
[2020-10-03] MEDS: PANTOPRAZOLE 40 MG TABLET.DR PO SCH (08:25)
[2020-10-03] MEDS: LEVETIRACETAM (250 MG) 250 MG TABLET PO SCH (08:26)
[2020-10-03] MEDS: ASPIRIN EC 81 MG TABLET.DR PO SCH (08:28)
[2020-10-03] MEDS: DILTIAZEM HCL 30 MG TABLET PO SCH ×3 (08:28→16:36)
[2020-10-03] MEDS: APIXABAN 5 MG TABLET PO SCH ×2 (08:29→16:34)
[2020-10-03] MEDS: ENSURE ENLIVE 237 ML LIQUID (VANILLA) PO SCH ×3 (08:29→16:38)
[2020-10-03] MEDS: METOPROLOL TARTRATE 50 MG TABLET PO SCH ×2 (08:30→17:00)
[2020-10-03 08:40] LABS: SERUM AMMONIA < 10 umol/L (11-32)
[2020-10-03 08:53] LABS: VALPROIC ACID 44 ug/mL (50-100)
--- NOTE | 2020-10-03 09:43 | NUR ---
RECEIVED ORDERS AT THIS TIME FROM DR BELTRAN FOR ZYPREXA 5MG PO QD8AM AT THIS TIME. ORDERS READ BACK AND CARRIED OUT. WILL CONTINUE TO MONITOR
[2020-10-03 09:50] LABS: BAND % (MANUAL) 4 % (0.0-5.0); EOSINOPHILS % (MANUAL) 6 % (0-4); LYMPHOCYTES % (MANUAL) 16 % (16-48); MONOCYTES % (MANUAL) 19 % (0-11.0); NEUTROPHILS % (MANUAL) 55 (42-76)
[2020-10-03] MEDS ORDERED: OLANZAPINE 5 MG TABLET PO SCH (10:00)
[2020-10-03] MEDS: OLANZAPINE 5 MG TABLET PO SCH (13:27)
[2020-10-03] MEDS: LORAZEPAM 0.5 MG TABLET PO PRN ×2 (15:16→15:28)
--- NOTE | 2020-10-03 15:39 | NUR ---
PT IS ANXIOUS, VS BP 132/70, HR 95, T 97.8, SPO2 98%. ATIVAN 0.5MG PO Q6HR PRN ADMINISTERED AT THIS TIE PER ORDER. WILL CONTINUE TO MONITOR
[2020-10-03 17:00] VITALS: BP 105/62
--- NOTE | 2020-10-03 18:28 | NUR ---
MS RN CLOSING NOTES PT AWAKE IN BED AT THIS TIME. PT REMAINED STABLE THROUGHOUT SHIFT. ALL CARE, NEEDS, MEDICATIONS AND TREATMENT ADMINISTERED ANTICIPATED PER ORDER. PT KEPT CLEAN AND DRY. WAYNE PT'S SITTER AT BEDSIDE. 1:1 SITTER AT BEDSIDE. WOUND CARE ADMINISTERED PER ORDER ASPIRATION, AND SAFETY PRECAUTIONS IN PLACE AND MAINTAINED AT ALL TIMES. BED IN LOWEST LOCKED POSITION, HOB ELEVATED, SIDE RAILS UPX2, CALL LIGHT AND TABLE WITHIN REACH. WILL ENDORSE TO KINDERGARTEN AIDE NURSE FOR STIVEN
[2020-10-04] MEDS ORDERED: TEMA7.5C12 PO (07:38)
[2020-10-04] MEDS ORDERED: OLAN5TAB3 PO ×2 (07:38)
[2020-10-04] MEDS ORDERED: ASPI-1420 PO (07:38)
[2020-10-04] MEDS ORDERED: ONDA4VIA52 IV (07:38)
[2020-10-04] MEDS ORDERED: LEVE250T2 PO (07:38)
[2020-10-04] MEDS ORDERED: MAGN400O6 PO (07:38)
[2020-10-04] MEDS ORDERED: MAG30ORA PO (07:38)
[2020-10-04] MEDS ORDERED: LACT-58 PO (07:38)
[2020-10-04] MEDS ORDERED: ACET-868 PO (07:38)
[2020-10-04] MEDS ORDERED: LORA-258 PO (07:38)
[2020-10-04] MEDS ORDERED: MORP1SYR2 IV (07:38)
[2020-10-04] MEDS ORDERED: HYDR-4209 PO (07:38)
[2020-10-04] MEDS ORDERED: PANT40TA2 PO (07:38)
[2020-10-04] MEDS ORDERED: ALLA266C2 TP (07:38)
[2020-10-04] MEDS ORDERED: LORA2VIA11 IM (07:38)
== END 2020-10-03 19:29 | DRG 280 ==
LOC: ER 13:19 → TELE 18:03 → MED 10-03 14:04
PROVIDERS: ADMIT Student in an Organized Health Care Education/Training Program; ATTEND Nurse Practitioner Acute Care
DX: I21.4 Non-ST elevation (NSTEMI) myocardial infarction (principal); N17.0 Acute kidney failure with tubular necrosis; D68.59 Other primary thrombophilia; E44.0 Moderate protein-calorie malnutrition; F05 Delirium due to known physiological condition; I48.20 Chronic atrial fibrillation, unspecified; G93.40 Encephalopathy, unspecified; E86.0 Dehydration; I10 Essential (primary) hypertension; D69.6 Thrombocytopenia, unspecified; Z79.01 Long term (current) use of anticoagulants; Z79.890 Hormone replacement therapy; Z91.14 Patient's other noncompliance with medication regimen; I69.320 Aphasia following cerebral infarction; Z79.899 Other long term (current) drug therapy; R74.01 Elevation of levels of liver transaminase levels; E03.9 Hypothyroidism, unspecified; E78.5 Hyperlipidemia, unspecified; F41.9 Anxiety disorder, unspecified; I25.10 Atherosclerotic heart disease of native coronary artery without angina pectoris; Z87.11 Personal history of peptic ulcer disease; G40.909 Epilepsy, unspecified, not intractable, without status epilepticus; F29 Unspecified psychosis not due to a substance or known physiological condition; F20.9 Schizophrenia, unspecified; F01.50 Vascular dementia, unspecified severity, without behavioral disturbance, psychotic disturbance, mood disturbance, and anxiety; M62.562 Muscle wasting and atrophy, not elsewhere classified, left lower leg; M62.561 Muscle wasting and atrophy, not elsewhere classified, right lower leg; S91.312A Laceration without foreign body, left foot, initial encounter; X58.XXXA Exposure to other specified factors, initial encounter; Y92.9 Unspecified place or not applicable; J43.2 Centrilobular emphysema
CPT/HCPCS: 36415; 70450-TC; 70496-TC; 70498-TC; 80048-TC; 80053-TC; 80061-TC; 80076-TC; 80164-TC; 81001; 82140-TC; 82962-TC; 83735-TC; 84100-TC; 84439-TC; 84443-TC; 84484-TC; 85025-TC; 87081-TC; 92526; 92611-TC; 93307-TC; 97530-TC; C9803; G0378; G0480; J0515; J1630; J2060; J2250; J3490; J7030; J7050; Q9967

== ENCOUNTER 2020-10-03 19:55 | Inpatient (IN) | payer MEDICARE ==
[~2020-10-03] VITALS: Ht 167.6 cm; Wt 50.8 kg
[~2020-10-03 19:55] MED LIST changes: +APIX5TAB PO; +ATOR80TA PO; +DILT30TA2 PO; -DIVA-78 PO; +DIVA500T2 PO; +LEVO100T9 PO; +METO50TA16 PO; +QUET25TA PO; +TRAZ-252 PO
[2020-10-03 20:30] VITALS: BP 122/65
[2020-10-03] MEDS ORDERED: BLOOD SUGAR DIAGNOSTIC 1 EACH STRIP IN ONE (20:30)
[2020-10-03] MEDS ORDERED: MAGNESIUM HYDROXIDE 30 ML UDC PO PRN (20:30)
[2020-10-03] MEDS ORDERED: ACETAMINOPHEN 325 MG TABLET PO PRN (20:30)
[2020-10-03] MEDS ORDERED: MAG HYDROX/AL HYDROX/SIMETH 30 ML UDC PO PRN (20:30)
--- NOTE | 2020-10-03 21:00 | NUR ---
ADMISSION NOTES: ADMITTED THIS 70Y/O FEMALE PATIENT ADMIT FROM [facility]LO[facility], PT. ADMITTED TO GPS ON 5150 GD HOLD , PER HOLD, PT. VERY AGITATED DISORIENTED, CONFUSED, DISORGANIZED,IMPARIED JUDGEMENT ,POOR INSIGHT AND IMPULSIVE CONTROL, PT. IS NOT ABLE TO PROVIDE FOR HER FOOD SENIOR LIVING OR CLOTHING DUE TO MENTAL DISORDER ,UPON FACE TO FACE ASSESSMENT PATIENT IS A&O X 1 ,ANXIOUS, HYPERVERBAL TALIKG TO SELF ,MANIC, DELUSIONAL DISORGNIZED,DISORIENTED DISHEVELLED , UNCOOPERTIVE AT THIS TIME ,DENIES SI /HI AT THIS TIME, PT. IS POOR HISTORIAN, POOR INSIGHT ,POOR JUDGEMENT , PT. REFUSED TO SIGNS ADMISSION CONSENT PAPERS ,DUE TO CONFUSED, BOTH MD AWARE AND NOTIFIED OF THE ADMISSION, BELONGINGS CONTRABAND WERE DONE ,PT. RIGHTS DISCUSS BY ELECTROPHYSIOLOGY SCIENTIST , PROVIDE THE PT. WITH HANDBOOK, AND MEDICATIONS GUIDE, ENVIRONMENTAL SAFETY CHECK DONE, ENCOURAGED PT. VERBALIZED ANY FEELING CONCERN TO STAFF, ORIENT TO UNIT POLICY, NO ACUTE DISTRESS NOTED,VITAL SIGNS WNL ,DENIES ANY PAIN AT THIS TIME,WILL CONTINUE TO MONITOR FOR Q15 SAFETY AND BEHAVIOR.
[2020-10-04] MEDS ORDERED: HYDROCODONE/APAP 5/325MG TABLET PO PRN (03:00)
[2020-10-04] MEDS: LEVOTHYROXINE SODIUM 112 MCG TABLET PO SCH (06:53)
[2020-10-04] MEDS: PANTOPRAZOLE 40 MG TABLET.DR PO SCH (06:53)
[2020-10-04] MEDS ORDERED: OLAN5TAB3 PO ×2 (07:38)
[2020-10-04] MEDS ORDERED: HYDR-4209 PO (07:38)
[2020-10-04] MEDS ORDERED: LORA2VIA11 IM (07:38)
[2020-10-04] MEDS ORDERED: LORA-258 PO (07:38)
[2020-10-04] MEDS ORDERED: MAGN400O6 PO (07:38)
[2020-10-04] MEDS ORDERED: ONDA4VIA52 IV (07:38)
[2020-10-04] MEDS ORDERED: PANT40TA2 PO (07:38)
[2020-10-04] MEDS ORDERED: LACT-58 PO (07:38)
[2020-10-04] MEDS ORDERED: LEVE250T2 PO (07:38)
[2020-10-04] MEDS ORDERED: ACET-868 PO (07:38)
[2020-10-04] MEDS ORDERED: MAG30ORA PO (07:38)
[2020-10-04] MEDS ORDERED: MORP1SYR2 IV (07:38)
[2020-10-04] MEDS ORDERED: TEMA7.5C12 PO (07:38)
[2020-10-04] MEDS ORDERED: ALLA266C2 TP (07:38)
[2020-10-04] MEDS ORDERED: ASPI-1420 PO (07:38)
[2020-10-04 08:00] VITALS: BP 142/79
[2020-10-04 08:01] LABS: ALBUMIN 2.5 g/dL (3.4-5.0); BILIRUBIN,TOTAL 0.6 mg/dL (0.2-1.0); CALCIUM, SERUM 8.6 mg/dL (8.5-10.1); CREATININE 1.2 mg/dL (0.6-1.3); POTASSIUM 3.9 mmol/L (3.5-5.1)
[2020-10-04] MEDS: Z GUARD REMEDY 2 OZ OINT TP SCH (08:16)
[2020-10-04 08:51] LABS: CHOLESTEROL 152 mg/dL (<200); HDL CHOLESTEROL 48 mg/dL (40-60); LDL 84 mg/dL (0-99); TRIGLYCERIDES 107 mg/dL (30-150)
[2020-10-04] MEDS: ASPIRIN EC 81 MG TABLET.DR PO SCH (08:57)
[2020-10-04] MEDS: DILTIAZEM HCL 30 MG TABLET PO SCH ×4 (08:57→21:59)
[2020-10-04] MEDS: APIXABAN 5 MG TABLET PO SCH ×2 (08:59→16:40)
[2020-10-04] MEDS: ENSURE ENLIVE 237 ML LIQUID (VANILLA) PO SCH ×3 (08:59→17:00)
[2020-10-04] MEDS ORDERED: DILTIAZEM HCL 30 MG TABLET PO SCH (09:00)
[2020-10-04] MEDS: LEVETIRACETAM (250 MG) 250 MG TABLET PO SCH ×2 (09:00→21:49)
[2020-10-04] MEDS ORDERED: METOPROLOL TARTRATE 50 MG TABLET PO SCH (09:00)
[2020-10-04] MEDS: METOPROLOL TARTRATE 50 MG TABLET PO SCH ×2 (09:01→22:07)
--- NOTE | 2020-10-04 10:33 | NUR ---
WOUND CARE CONSULT: PT PRESENTS WITH LEFT FOOT FOAM DRESSING WHICH IS DRY AND INTACT. PT REFUSED TO HAVE DRESSING REMOVED. RECOMMEND DPM CONSULT. DR MERRITT NOTIFIED OF CONSULT REQUEST. IN AGREEMENT WITH PLAN OF CARE. CURRENT CLARISA SCORE IS 17.
[2020-10-04] MEDS ORDERED: OLANZAPINE 10 MG VIAL IM STA (10:59)
--- NOTE | 2020-10-04 11:07 | NUR ---
GPS RN NOTE, PATIENT THREATENING PHYSICAL HARM TO STAFF, AGGRESIVE DELUSIONAL, AGITATED,SCREAMING YELLING, AND LESS RESTRICTIVE MEASURES ATTEMPTED IE DIVERSION, OFFERED PO MEDICATION, PT. REFUSED TO TAKE, DR BELTRAN IN THE UNIT AND SEEN PT. BEHAVIOR VERY AGGRESSIVE TOWARDS STAFF . DR BELTRAN ORDERED ZYPREXA 5MG IM ONCE. PATIENT GIVEN AFOREMENTIONED MEDICATION IN HIS LEFT VENTROGLUTEAL WITH THE HELP OF STAFF AND SECURITY. PATIENT TOLERATE PROCEDURE WELL. ALL ORDERS NOTED AND CARRIED OUT WILL CONTINUE TO MONITOR THE PATIENT.
[2020-10-04] MEDS: OLANZAPINE 2.5 MG TABLET PO SCH ×2 (12:43→16:40)
[2020-10-04 16:00] VITALS: BP 100/59
--- NOTE | 2020-10-04 16:44 | NUR ---
RN NOTES: PM MEDS REFUSED PATIENT REFUSED ALL PM SCHEDULE MEDS, ENCOURAGED X3 , EDUCATION PROVIDED ON THE IMPORTANCE OF MEDICATION COMPLIANCE. WILL CONTINUE TO MONITOR.
[2020-10-04 20:00] VITALS: BP 107/64
[2020-10-04] MEDS: ATORVASTATIN 40 MG TABLET PO SCH (21:49)
[2020-10-04] MEDS: OLANZAPINE 10 MG TABLET PO SCH (21:49)
--- NOTE | 2020-10-05 06:42 | NUR ---
GPS RN CLOSING NOTES: PATIENT IS SLEEPING COMFORTABLY IN BED. PATIENT SLEPT 9HRS THIS SHIFT. MED COMPLIANT THIS SHIFT. NO S/S OF DISTRESS. RESPIRATION EVEN AND UNLABORED WITH EQUAL RISE AND FALL OF THE CHEST ON ROOM AIR. ALL PATIENT CARE NEEDS HAVE BEEN MET ANTICIPATED. BED IN LOWEST POSITION AND LOCKED WITH SIDE RAILS UP X2. WILL CONTINUE TO MONITOR FOR SAFETY, MOOD AND BEHAVIOR AND ENDORSE TO AM SHIFT.
[2020-10-05] MEDS: PANTOPRAZOLE 40 MG TABLET.DR PO SCH (07:24)
[2020-10-05] MEDS: LEVOTHYROXINE SODIUM 112 MCG TABLET PO SCH (07:24)
[2020-10-05] MEDS ORDERED: OLANZAPINE 10 MG VIAL IM STA (07:37)
--- NOTE | 2020-10-05 07:38 | NUR ---
RN NOTE- PT SCREAMING UNABLE TO BE REDIRECTED, DR BELTRAN CALLED. ZYPREXA 5 MG IM STAT
[2020-10-05 08:00] VITALS: BP 113/68
[2020-10-05] MEDS: DILTIAZEM HCL 30 MG TABLET PO SCH ×4 (08:37→21:15)
[2020-10-05] MEDS: ASPIRIN EC 81 MG TABLET.DR PO SCH (08:37)
[2020-10-05] MEDS: ENSURE ENLIVE 237 ML LIQUID (VANILLA) PO SCH ×3 (08:38→16:39)
[2020-10-05] MEDS: APIXABAN 5 MG TABLET PO SCH ×2 (08:38→16:39)
[2020-10-05] MEDS: METOPROLOL TARTRATE 50 MG TABLET PO SCH ×2 (08:39→21:00)
[2020-10-05] MEDS: LEVETIRACETAM (250 MG) 250 MG TABLET PO SCH ×2 (08:39→21:16)
[2020-10-05] MEDS: OLANZAPINE 2.5 MG TABLET PO SCH ×2 (08:39→12:36)
[2020-10-05] MEDS: Z GUARD REMEDY 2 OZ OINT TP SCH (08:39)
--- NOTE | 2020-10-05 09:00 | NUR ---
RN NOTE- PT SCREAMING NOT DIRECTABLE, REFUSING RX AND CARE, STRIKING TRAY AND FLETCHER PO INTAKE FAIR, REORIENT PRN
--- NOTE | 2020-10-05 14:05 | NUR ---
RN NOTE- SCREAMING UNABLE TO BE REDIRECTED. DR BELTRAN ORDERED HALDOL 3 MG AND BENARDYL 25 MG IM STAT. COMPLIED W STAFF ASSIST
[2020-10-05] MEDS ORDERED: diphenhydrAMINE HCL 50 MG/ML VIAL IM STA (14:11)
[2020-10-05] MEDS ORDERED: HALOPERIDOL LACTATE INJ 5 MG/ML VIAL IM STA (14:11)
--- NOTE | 2020-10-05 14:15 | NUR ---
Family Contact: SW called the pts sister, Nolvia ([phone]), and received collateral information regarding the pt as the pt was too demented to cooperate with an assessment. SW discussed the pts initial discharge plan and stated that the MD recommendation is for the pt to be discharged to a SNF. Pts sister questioned the reasoning and how long the pt would be in a facility and SW attempted to answer to the best of her ability.
[2020-10-05 16:00] VITALS: BP 112/65
[2020-10-05] MEDS: risperiDONE 0.25 MG TABLET PO SCH (17:00)
[2020-10-05 20:27] VITALS: BP 104/70
[2020-10-05] MEDS: ATORVASTATIN 40 MG TABLET PO SCH (21:16)
[2020-10-05] MEDS: OLANZAPINE 10 MG TABLET PO SCH (21:17)
[2020-10-05] MEDS: TEMAZEPAM 7.5 MG CAPSULE PO PRN (21:54)
--- NOTE | 2020-10-05 21:56 | NUR ---
GPS RN NOTES: RESTORIL 7.5MG/1TAB GIVEN PO PRN ORDERED AT 2154. WILL CONTINUE TO MONITOR.
[2020-10-06] MEDS: Z GUARD REMEDY 2 OZ OINT TP PRN (00:13)
--- NOTE | 2020-10-06 06:36 | NUR ---
GPS RN CLOSING NOTES: PATIENT IS CURRENTLY SLEEPING. PATIENT SLEPT 6HRS THIS SHIFT. MED COMPLIANT THIS SHIFT. REFUSED AM BLOOD DRAW. NO S/S OF DISTRESS. RESPIRATION EVEN AND UNLABORED WITH EQUAL RISE AND FALL OF THE CHEST ON ROOM AIR. ALL PATIENT CARE NEEDS HAVE BEEN MET ANTICIPATED. BED IN LOWEST POSITION AND LOCKED WITH SIDE RAILS UP X2. WILL CONTINUE TO MONITOR FOR SAFETY, MOOD AND BEHAVIOR AND ENDORSE TO AM SHIFT
[2020-10-06 08:00] VITALS: BP 117/67
[2020-10-06] MEDS: LEVOTHYROXINE SODIUM 112 MCG TABLET PO SCH (08:38)
[2020-10-06] MEDS: PANTOPRAZOLE 40 MG TABLET.DR PO SCH (08:38)
[2020-10-06] MEDS: Z GUARD REMEDY 2 OZ OINT TP SCH (09:00)
[2020-10-06] MEDS: ASPIRIN EC 81 MG TABLET.DR PO SCH (09:24)
[2020-10-06] MEDS: APIXABAN 5 MG TABLET PO SCH ×2 (09:26→17:28)
[2020-10-06] MEDS: DILTIAZEM HCL 30 MG TABLET PO SCH ×4 (09:26→21:52)
[2020-10-06] MEDS: LEVETIRACETAM (250 MG) 250 MG TABLET PO SCH ×2 (09:26→21:52)
[2020-10-06] MEDS: risperiDONE 0.25 MG TABLET PO SCH (09:26)
[2020-10-06] MEDS: METOPROLOL TARTRATE 50 MG TABLET PO SCH ×2 (09:27→21:00)
[2020-10-06] MEDS: ENSURE ENLIVE 237 ML LIQUID (VANILLA) PO SCH ×3 (09:33→17:34)
--- NOTE | 2020-10-06 09:51 | NUR ---
Initial Discharge Plan: Pt currently resides at the [facility] located at [address] [place] [address]. Per pts sister, Nolvia ([phone]), she is unsure of the pts discharge plan. SW will work with the pt, pts sister, and MD regarding appropriate discharge planning. SW will form a safe and proper discharge.
[2020-10-06 11:37] LABS: BASOPHILS % (AUTO) 0.5 % (0.0-2.0); EOSINOPHILS % (AUTO) 8.3 % (0.0-6.0); HEMATOCRIT 44 % (33-45); HEMOGLOBIN 14.4 g/dL (11.5-14.8); LYMPHOCYTES # (AUTO) 1.1 /CMM (0.8-4.8); LYMPHOCYTES % (AUTO) 13.8 % (20.0-44.0); MEAN CORPUSCULAR HGB CONC 33 g/dl (31.0-36.0); MEAN CORPUSCULAR VOLUME 96 fL (82-100); MONOCYTES # (AUTO) 1.2 /CMM (0.1-1.30); MONOCYTES % (AUTO) 15.2 % (2.0-12.0); NEUTROPHILS # (AUTO) 4.8 /CMM (1.8-8.9); NEUTROPHILS % (AUTO) 62.2 % (43.0-81.0); PLATELET COUNT (AUTO) 150 /CMM (150-450); RED BLOOD CELL COUNT(AUTO) 4.52 MIL/uL (4.0-5.2); WHITE BLOOD COUNT (AUTO) 7.8 K/uL (4.3-11.0)
[2020-10-06 12:22] LABS: EOSINOPHILS % (MANUAL) 6 % (0-4); LYMPHOCYTES % (MANUAL) 13 % (16-48); MONOCYTES % (MANUAL) 14 % (0-11.0); NEUTROPHILS % (MANUAL) 67 (42-76)
[2020-10-06 12:45] VITALS: BP 99/66
[2020-10-06] MEDS ORDERED: risperiDONE 0.25 MG TABLET PO SCH (13:00)
--- NOTE | 2020-10-06 13:37 | NUR ---
Group Note: SW encouraged the pt to attend group therapy on 10/06/20 at 1pm regarding the topic of discharge planning and the pt refused to attend. Pt is unable to attend due to being disorganized, confused, and manic.
[2020-10-06 14:03] LABS: ALBUMIN 2.6 g/dL (3.4-5.0); BILIRUBIN,TOTAL 0.6 mg/dL (0.2-1.0); CALCIUM, SERUM 8.3 mg/dL (8.5-10.1); CREATININE 1.3 mg/dL (0.6-1.3); POTASSIUM 3.8 mmol/L (3.5-5.1); TOTAL PROTEIN, SERUM 6.1 g/dL (6.4-8.2)
[2020-10-06 16:00] VITALS: BP 98/51
--- NOTE | 2020-10-06 17:20 | NUR ---
Dr. Adams and Og made aware of the latest BP of 98/51 and OK 90 and with orders. Kevin Bustamante ordered to keep Cardizem and reduce metoprolol to [address] Adams placed new order.
[2020-10-06 19:46] VITALS: BP 122/62
[2020-10-06 20:00] VITALS: BP 122/62
[2020-10-06] MEDS: risperiDONE 1 MG TABLET PO SCH (21:52)
--- NOTE | 2020-10-06 22:15 | NUR ---
RN NOTE: HELD LOPRESSOR PATIENT'S BP IS 103/69, 107, HELD LOPRESSOR 25 MG SCHEDULED, CARDIZEM 30 MG PO ADMINISTERED. CHARGE NURSE MADE AWARE.
[2020-10-06] MEDS: ATORVASTATIN 40 MG TABLET PO SCH (22:17)
[2020-10-06] MEDS: TEMAZEPAM 7.5 MG CAPSULE PO PRN (23:11)
--- NOTE | 2020-10-06 23:14 | NUR ---
GPS RN NOTE: INSOMNIA PATIENT IS UNABLE TO SLEEP DUE TO RESTLESSNESS, ANXIOUSNESS. RESTORIL 7.5MG 1 CAP PO PRN ADMINISTERED. WILL CONTINUE TO MONITOR.
[2020-10-07] MEDS: Z GUARD REMEDY 2 OZ OINT TP PRN ×2 (04:26→23:05)
[2020-10-07] MEDS: LORAZEPAM 0.5 MG TABLET PO PRN (05:00)
--- NOTE | 2020-10-07 05:00 | NUR ---
RN NOTE: ANXIETY PATIENT NOTED TO BE AGITATED & ANXIOUS. PRN ATIVAN 0.5 MG 1 TAB PO ADMINISTERED. WILL CONTINUE TO MONITOR.
[2020-10-07 08:00] VITALS: BP 132/67
[2020-10-07] MEDS: ASPIRIN EC 81 MG TABLET.DR PO SCH (08:26)
[2020-10-07] MEDS: LEVETIRACETAM (250 MG) 250 MG TABLET PO SCH ×2 (08:26→20:34)
[2020-10-07] MEDS: risperiDONE 1 MG TABLET PO SCH ×4 (08:26→20:35)
[2020-10-07] MEDS: PANTOPRAZOLE 40 MG TABLET.DR PO SCH (08:26)
[2020-10-07] MEDS: DILTIAZEM HCL 30 MG TABLET PO SCH ×4 (08:27→20:36)
[2020-10-07] MEDS: LEVOTHYROXINE SODIUM 112 MCG TABLET PO SCH (08:27)
[2020-10-07] MEDS: METOPROLOL TARTRATE 50 MG TABLET PO SCH ×2 (08:28→20:37)
[2020-10-07] MEDS: APIXABAN 5 MG TABLET PO SCH ×2 (08:28→17:35)
[2020-10-07] MEDS: ENSURE ENLIVE 237 ML LIQUID (VANILLA) PO SCH ×3 (08:33→17:36)
[2020-10-07] MEDS: Z GUARD REMEDY 2 OZ OINT TP SCH (08:39)
[2020-10-07 16:00] VITALS: BP 125/63
[2020-10-07 20:04] VITALS: BP 140/61
[2020-10-07] MEDS: BENZTROPINE MESYLATE (1 MG) 1 MG TABLET PO SCH (21:40)
[2020-10-07] MEDS: ATORVASTATIN 40 MG TABLET PO SCH (21:40)
[2020-10-07] MEDS: TEMAZEPAM 7.5 MG CAPSULE PO PRN (22:22)
--- NOTE | 2020-10-07 22:23 | NUR ---
GPS RN NOTES: RESTORIL 7.5MG/1TAB GIVEN PO PRN ORDERED AT 2222. WILL CONTINUE TO MONITOR.
--- NOTE | 2020-10-08 06:50 | NUR ---
GPS RN CLOSING NOTES: PATIENT IS CURRENTLY SLEEPING. PATIENT SLEPT 7HRS THIS SHIFT. WAS MED COMPLIANT THIS SHIFT. NO S/S OF DISTRESS. RESPIRATION EVEN AND UNLABORED WITH EQUAL RISE AND FALL OF THE CHEST ON ROOM AIR. ALL PATIENT CARE NEEDS HAVE BEEN MET ANTICIPATED. BED IN LOWEST POSITION AND LOCKED WITH SIDE RAILS UP X2. WILL CONTINUE TO MONITOR FOR SAFETY, MOOD AND BEHAVIOR AND ENDORSE TO AM SHIFT
[2020-10-08 08:00] VITALS: BP 109/59
[2020-10-08] MEDS: METOPROLOL TARTRATE 50 MG TABLET PO SCH ×2 (09:00→21:32)
[2020-10-08] MEDS: DILTIAZEM HCL 30 MG TABLET PO SCH ×4 (09:00→21:32)
[2020-10-08] MEDS: PANTOPRAZOLE 40 MG TABLET.DR PO SCH (09:20)
[2020-10-08] MEDS: risperiDONE 1 MG TABLET PO SCH ×4 (09:21→21:33)
[2020-10-08] MEDS: ASPIRIN EC 81 MG TABLET.DR PO SCH (09:21)
[2020-10-08] MEDS: LEVETIRACETAM (250 MG) 250 MG TABLET PO SCH ×2 (09:21→21:32)
[2020-10-08] MEDS: LEVOTHYROXINE SODIUM 112 MCG TABLET PO SCH (09:21)
[2020-10-08] MEDS: ENSURE ENLIVE 237 ML LIQUID (VANILLA) PO SCH ×3 (09:25→18:24)
[2020-10-08] MEDS: APIXABAN 5 MG TABLET PO SCH ×2 (09:25→17:20)
[2020-10-08] MEDS: Z GUARD REMEDY 2 OZ OINT TP SCH (14:05)
[2020-10-08 15:59] VITALS: BP 106/57
[2020-10-08 20:56] VITALS: BP 132/55
[2020-10-08] MEDS: BENZTROPINE MESYLATE (1 MG) 1 MG TABLET PO SCH (21:33)
[2020-10-08] MEDS: ATORVASTATIN 40 MG TABLET PO SCH (21:33)
[2020-10-09] MEDS: LEVOTHYROXINE SODIUM 112 MCG TABLET PO SCH (07:30)
[2020-10-09 08:00] VITALS: BP 110/65
[2020-10-09] MEDS: risperiDONE 1 MG TABLET PO SCH ×4 (08:00→21:00)
[2020-10-09] MEDS: LEVETIRACETAM (250 MG) 250 MG TABLET PO SCH ×2 (09:27→21:56)
[2020-10-09] MEDS: ASPIRIN EC 81 MG TABLET.DR PO SCH (09:28)
[2020-10-09] MEDS: APIXABAN 5 MG TABLET PO SCH ×2 (09:29→17:48)
[2020-10-09] MEDS: METOPROLOL TARTRATE 50 MG TABLET PO SCH ×2 (09:30→21:00)
[2020-10-09] MEDS: DILTIAZEM HCL 30 MG TABLET PO SCH ×4 (09:30→21:00)
[2020-10-09] MEDS: ENSURE ENLIVE 237 ML LIQUID (VANILLA) PO SCH ×3 (09:31→17:51)
[2020-10-09] MEDS: Z GUARD REMEDY 2 OZ OINT TP SCH (09:32)
[2020-10-09] MEDS: PANTOPRAZOLE 40 MG TABLET.DR PO SCH (09:45)
[2020-10-09 16:00] VITALS: BP 100/55
[2020-10-09 20:00] VITALS: BP 98/55
[2020-10-09 20:20] VITALS: BP 94/58
--- NOTE | 2020-10-09 20:20 | NUR ---
RN NOTE: DECREASED BP PATIENT'S VITALS ARE 94/58/112, 20, 98, 97% AT RA. PO FLUIDS OFFERED & TOLERATED WELL. NO ACUTE DISTRESS NOTED AT THIS TIME. WILL CONTINUE TO MONITOR.
--- NOTE | 2020-10-09 21:00 | NUR ---
RN NOTE PATIENT'S SISTER LORE CALLED & UPDATES PROVIDED TO LORE REGARDING PATIENT'S HEALTH CONDITION. LORE ASKED TO FIND PATIENT'S GLASSES & HAVE HER USE THEM WHEN SHE WATCHES TV, FOUND PATIENT'S GLASSES IN ROOM CLOSET CLOTHING BAG & WILL PUT PT'S GLASSES BACK IN THE SAME PLASTIC BAG IN THE CLOSET TO PREVENT THEM FROM LOOSING. WILL ENDORSE TO AM RN WELL.
[2020-10-09 21:55] VITALS: BP 106/56
[2020-10-09] MEDS: ATORVASTATIN 40 MG TABLET PO SCH (21:57)
[2020-10-09] MEDS: BENZTROPINE MESYLATE (1 MG) 1 MG TABLET PO SCH (22:00)
--- NOTE | 2020-10-09 22:28 | NUR ---
RN NOTE: RADHA YU & MADE AWARE PATIENT'S BP IS 106/56, 101, 18, 97.5, 96% AT RA. 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 SANDRA ORLANDO & SIMI SCHEDULED AT 2100. NOTIFIED ELYSSA LOPES NP. ENCOURAGING PO FLUIDS TOLERATED. CHARGE NURSE MADE AWARE. WILL CONTINUE TO MONITOR FOR ANY STIVEN.
--- NOTE | 2020-10-09 22:44 | NUR ---
RN NOTE PATIENT REFUSED TO TAKE COGENTIN AT THIS TIME. UNCOOPERATIVE & GETS ANXIOUS & RESTLESS WHEN REAPROACHED. WILL CONTINUE TO MONITOR FOR ANY STIVEN.
--- NOTE | 2020-10-10 02:18 | NUR ---
RN NOTE PATIENT'S LEFT FOOT WOUND NOTED TO BE DARK COLOR THAN BEFORE, NOTED WITH RIGHT/LEFT GROIN REDNESS. MD MADE AWARE. WOUND CARE CONSULT ORDERED FOR FURTHER EVALUATION. KEPT CLEAN & DRY. Z GUARD APPLIED TO SACRUM, RIGHT & LEFT BUTTOCK & R & L GROIN. PATIENT IS ABLE TO TURN/REPOSITION IN BED INDEPENDENTLY. WILL CONTINUE TO MONITOR.
[2020-10-10] MEDS: Z GUARD REMEDY 2 OZ OINT TP PRN (03:13)
--- NOTE | 2020-10-10 07:26 | NUR ---
RN NOTE PATIENT'S EYE GLASSES PLACED BACK IN BELONGING CLOSET, PLASTIC BAG & ENDORSED TO AM RN.
[2020-10-10] MEDS: PANTOPRAZOLE 40 MG TABLET.DR PO SCH (07:58)
[2020-10-10] MEDS: LEVOTHYROXINE SODIUM 112 MCG TABLET PO SCH (07:58)
[2020-10-10] MEDS: risperiDONE 1 MG TABLET PO SCH ×4 (07:59→22:09)
[2020-10-10 08:00] VITALS: BP 122/80
[2020-10-10] MEDS: LEVETIRACETAM (250 MG) 250 MG TABLET PO SCH ×2 (08:29→22:06)
[2020-10-10] MEDS: ASPIRIN EC 81 MG TABLET.DR PO SCH (08:29)
[2020-10-10] MEDS: DILTIAZEM HCL 30 MG TABLET PO SCH ×4 (08:30→21:00)
[2020-10-10] MEDS: METOPROLOL TARTRATE 50 MG TABLET PO SCH ×2 (08:30→22:07)
[2020-10-10] MEDS: APIXABAN 5 MG TABLET PO SCH ×2 (08:31→17:18)
[2020-10-10] MEDS: ENSURE ENLIVE 237 ML LIQUID (VANILLA) PO SCH ×3 (09:07→17:17)
[2020-10-10] MEDS: Z GUARD REMEDY 2 OZ OINT TP SCH (09:08)
--- NOTE | 2020-10-10 10:33 | NUR ---
Family Contact: SW called the pts sister, Nolvia ([phone]), and left a voicemail stating that the SW would like to discuss the pts treatment plan.
--- NOTE | 2020-10-10 11:01 | NUR ---
WOUND CARE CONSULT: PT UNCOOPERATIVE AT THIS TIME AND NOTED TO BE BANGING HER FIST AND KICKING HER LEGS. RECEIVED CONSULT FOR LEFT FOOT DISCOLORATION AND BUTTOCK/GROIN REDNESS. RECOMMEND DPM FOLLOW UP. DR MERRITT NOTIFIED. RECOMMENDATIONS MADE FOR BUTTOCKS AND GROIN SKIN PROTECTION. DISCUSSED WITH NURSING STAFF. MD IN AGREEMENT WITH PLAN OF CARE.
--- NOTE | 2020-10-10 11:46 | NUR ---
Family Contact: Pts sister, Nolvia ([phone]), contacted the SW back and stated that she wanted to understand the reasoning for the pt to be discharged to SNF. SW explained to the best of her availability and the pts sister stated that she wanted a list of SNFs that she can visit and look into. Pts sister also stated that she was going to call the Board and Care and ask them to assess the pt for whether or not she can return to their facility. She stated that she will contact the SW regarding their response.
--- NOTE | 2020-10-10 11:48 | NUR ---
SNF Contact: Alejandro from [facility] contacted the SW and stated that Dr. Monteiro, the pts Primary Care Physician, would like the SNF referral to be sent to [facility] so that he can remain on the pts case. stated that she will send a referral.
--- NOTE | 2020-10-10 11:51 | NUR ---
Family Contact: Pts sister, Nolvia ([phone]), contacted the SW back and stated that the Board and Care wants a referral sent over so that they can review the pts progress. SW stated that she will contact them and send a referral. SW also stated that she spoke to [facility] who stated that the pts PCP wants the pt at their facility if she is going to be discharged to a SNF. Pts sister stated that she wanted to have all the information of possibilities before making a discharge decision.
--- NOTE | 2020-10-10 11:52 | NUR ---
SNF Referral: AVERY faxed a referral to [facility] with attn to Alejandro to the fax number: [phone].
--- NOTE | 2020-10-10 11:53 | NUR ---
Board and Care Contact: AVERY called [facility] ([phone]) and spoke to Carline who stated that she wanted the pts progress notes and medications to determine if she can return. She asked that the SW fax the documentation.
--- NOTE | 2020-10-10 11:54 | NUR ---
Board and Care Referral: AVERY faxed updated notes to [facility] with attn to Carline to the fax number: [phone].
[2020-10-10 16:00] VITALS: BP 103/62
[2020-10-10] MEDS: CLOTRIMAZOLE 1% 15 GM TUBE TP SCH (17:17)
[2020-10-10] MEDS: ATORVASTATIN 40 MG TABLET PO SCH (22:08)
[2020-10-10] MEDS: TEMAZEPAM 7.5 MG CAPSULE PO PRN (22:09)
[2020-10-10] MEDS: BENZTROPINE MESYLATE (1 MG) 1 MG TABLET PO SCH (22:09)
[2020-10-11 06:00] VITALS: BP 108/60
[2020-10-11 08:00] VITALS: BP 98/66
[2020-10-11] MEDS: PANTOPRAZOLE 40 MG TABLET.DR PO SCH (08:28)
[2020-10-11] MEDS: LEVOTHYROXINE SODIUM 112 MCG TABLET PO SCH (08:28)
[2020-10-11] MEDS: risperiDONE 1 MG TABLET PO SCH ×4 (08:28→21:40)
[2020-10-11] MEDS: DILTIAZEM HCL 30 MG TABLET PO SCH ×4 (09:00→21:41)
[2020-10-11] MEDS: METOPROLOL TARTRATE 50 MG TABLET PO SCH ×2 (09:00→21:41)
[2020-10-11] MEDS: ASPIRIN EC 81 MG TABLET.DR PO SCH (09:29)
[2020-10-11] MEDS: LEVETIRACETAM (250 MG) 250 MG TABLET PO SCH ×2 (09:29→21:42)
[2020-10-11] MEDS: ENSURE ENLIVE 237 ML LIQUID (VANILLA) PO SCH ×3 (09:30→17:28)
[2020-10-11] MEDS: Z GUARD REMEDY 2 OZ OINT TP SCH (09:31)
[2020-10-11] MEDS: CLOTRIMAZOLE 1% 15 GM TUBE TP SCH ×2 (09:32→17:29)
[2020-10-11] MEDS: APIXABAN 5 MG TABLET PO SCH ×2 (09:35→17:27)
[2020-10-11 11:23] LABS: BASOPHILS # (AUTO) 0.1 /CMM (0.0-0.2); BASOPHILS % (AUTO) 0.7 % (0.0-2.0); EOSINOPHILS % (AUTO) 6.5 % (0.0-6.0); HEMATOCRIT 43 % (33-45); HEMOGLOBIN 14.2 g/dL (11.5-14.8); LYMPHOCYTES # (AUTO) 1.2 /CMM (0.8-4.8); LYMPHOCYTES % (AUTO) 12.1 % (20.0-44.0); MEAN CORPUSCULAR HGB CONC 33 g/dl (31.0-36.0); MEAN CORPUSCULAR VOLUME 97 fL (82-100); MONOCYTES # (AUTO) 1.3 /CMM (0.1-1.30); MONOCYTES % (AUTO) 12.8 % (2.0-12.0); NEUTROPHILS # (AUTO) 6.7 /CMM (1.8-8.9); NEUTROPHILS % (AUTO) 67.9 % (43.0-81.0); PLATELET COUNT (AUTO) 207 /CMM (150-450); RED BLOOD CELL COUNT(AUTO) 4.42 MIL/uL (4.0-5.2); WHITE BLOOD COUNT (AUTO) 9.9 K/uL (4.3-11.0)
[2020-10-11 11:32] LABS: CALCIUM, SERUM 9.1 mg/dL (8.5-10.1); CREATININE 1.3 mg/dL (0.6-1.3); POTASSIUM 4.5 mmol/L (3.5-5.1)
--- NOTE | 2020-10-11 14:06 | NUR ---
SNF Referral: AVERY faxed referral to [facility] ([address], [place] [address]; ph: [phone] fax: [phone]) and noted "Attn: Tressa."
[2020-10-11 16:00] VITALS: BP 99/78
--- NOTE | 2020-10-11 17:00 | NUR ---
RN NOTE: SANDRA HELD BP HELD DUE TO , 102
[2020-10-11 20:00] VITALS: BP 141/87
[2020-10-11] MEDS: BENZTROPINE MESYLATE (1 MG) 1 MG TABLET PO SCH (21:41)
[2020-10-11] MEDS: ATORVASTATIN 40 MG TABLET PO SCH (21:53)
[2020-10-12 08:00] VITALS: BP 104/58
--- NOTE | 2020-10-12 08:00 | NUR ---
RN NOTE: CARDIZEM AND METOPROLOL HELD DUE TO BP 104/58
[2020-10-12] MEDS: PANTOPRAZOLE 40 MG TABLET.DR PO SCH (08:08)
[2020-10-12] MEDS: LEVOTHYROXINE SODIUM 112 MCG TABLET PO SCH (08:08)
[2020-10-12] MEDS: risperiDONE 1 MG TABLET PO SCH ×3 (08:09→17:39)
--- NOTE | 2020-10-12 08:29 | NUR ---
WOUND CARE CONSULT/FOLLOW UP: PT SEEN FOR INNER BUTTOCK RASH AND RT LOWER BUTTOCK INCONTINENCE ASSOCIATED SKIN DAMAGE (NOT ON BONY AREA). RECOMMENDATIONS MADE FOR SKIN CARE AND PROTECTION. DISCUSSED WITH NURSING STAFF. PT CALM AT THIS TIME. IN AGREEMENT WITH PLAN OF CARE. Addendum: 10/12/20 at 0831 by GERALD SCHILLING WNDNU Amended: Links added.
[2020-10-12] MEDS: METOPROLOL TARTRATE 50 MG TABLET PO SCH ×2 (08:56→21:17)
[2020-10-12] MEDS: DILTIAZEM HCL 30 MG TABLET PO SCH ×4 (08:56→20:51)
[2020-10-12] MEDS: Z GUARD REMEDY 2 OZ OINT TP SCH (08:57)
[2020-10-12] MEDS: LEVETIRACETAM (250 MG) 250 MG TABLET PO SCH ×2 (08:57→20:50)
[2020-10-12] MEDS: ENSURE ENLIVE 237 ML LIQUID (VANILLA) PO SCH ×3 (08:57→17:39)
[2020-10-12] MEDS: ASPIRIN EC 81 MG TABLET.DR PO SCH (08:58)
[2020-10-12] MEDS: APIXABAN 5 MG TABLET PO SCH ×2 (08:59→17:40)
--- NOTE | 2020-10-12 09:06 | NUR ---
SNF Contact: Susie ([phone]) from [facility] contacted the SW and stated that the pt was accepted to their facility.
[2020-10-12] MEDS: CLOTRIMAZOLE 1% 15 GM TUBE TP SCH ×2 (09:25→17:44)
--- NOTE | 2020-10-12 13:10 | NUR ---
Family Contact: SW called the pts sister, Nolvia ([phone]), and left a voicemail stating that the pt is going to be discharged tomorrow so the SW would like to discuss the plan.
--- NOTE | 2020-10-12 13:36 | NUR ---
Family Contact: AVERY called the pts sister, Nolvia ([phone]), and left a voicemail stating that the discharge is not tomorrow.
[2020-10-12 16:00] VITALS: BP 104/56
--- NOTE | 2020-10-12 17:45 | NUR ---
RN NOTE: SANDRA HELD DUE TO BP104/56
[2020-10-12 20:35] VITALS: BP 115/54
[2020-10-12] MEDS: LORAZEPAM 0.5 MG TABLET PO PRN (20:48)
--- NOTE | 2020-10-12 20:50 | NUR ---
GPS RN NOTES: PATIENT RESTLESS, ANXIOUS, YELLING. ATIVAN 0.5MG/1TAB GIVEN PO PRN ORDERED AT 2047. WILL CONTINUE TO MONITOR.
[2020-10-12] MEDS: ATORVASTATIN 40 MG TABLET PO SCH (21:17)
[2020-10-12] MEDS: BENZTROPINE MESYLATE (1 MG) 1 MG TABLET PO SCH (21:17)
[2020-10-12] MEDS: TEMAZEPAM 7.5 MG CAPSULE PO PRN (21:58)
--- NOTE | 2020-10-12 22:02 | NUR ---
GPS RN NOTES: RESTORIL 7.5MG/1TAB GIVEN PO PRN ORDERED AT 2158. WILL CONTINUE TO MONITOR.
--- NOTE | 2020-10-13 06:52 | NUR ---
GPS RN CLOSING NOTES: PATIENT IS SLEEPING COMFORTABLY IN BED. PATIENT SLEPT 8HRS THIS SHIFT. NO S/S OF DISTRESS. RESPIRATION EVEN AND UNLABORED WITH EQUAL RISE AND FALL OF THE CHEST ON ROOM AIR. ALL PATIENT CARE NEEDS HAVE BEEN MET ANTICIPATED. BED IN LOWEST POSITION AND LOCKED WITH SIDE RAILS UP X2. WILL CONTINUE TO MONITOR FOR SAFETY, MOOD AND BEHAVIOR AND ENDORSE TO AM SHIFT.
[2020-10-13 08:00] VITALS: BP 102/57
--- NOTE | 2020-10-13 08:56 | NUR ---
Family Contact: SW called the pts sister, Nolvia ([phone]), and left a voicemail stating that the delinquency prevention social worker would like to discuss the pts placement.
[2020-10-13] MEDS: METOPROLOL TARTRATE 50 MG TABLET PO SCH (09:00)
[2020-10-13] MEDS: DILTIAZEM HCL 30 MG TABLET PO SCH ×2 (09:00→13:00)
[2020-10-13] MEDS: LEVOTHYROXINE SODIUM 112 MCG TABLET PO SCH (09:21)
[2020-10-13] MEDS: LEVETIRACETAM (250 MG) 250 MG TABLET PO SCH (09:21)
[2020-10-13] MEDS: ASPIRIN EC 81 MG TABLET.DR PO SCH (09:21)
[2020-10-13] MEDS: risperiDONE 1 MG TABLET PO SCH ×2 (09:22→14:14)
[2020-10-13] MEDS: APIXABAN 5 MG TABLET PO SCH (09:23)
[2020-10-13] MEDS: PANTOPRAZOLE 40 MG TABLET.DR PO SCH (09:26)
[2020-10-13] MEDS: ENSURE ENLIVE 237 ML LIQUID (VANILLA) PO SCH ×2 (09:33→13:00)
[2020-10-13] MEDS: CLOTRIMAZOLE 1% 15 GM TUBE TP SCH (09:33)
[2020-10-13] MEDS: Z GUARD REMEDY 2 OZ OINT TP SCH (09:33)
--- NOTE | 2020-10-13 10:19 | NUR ---
Family Contact: SW called the pts sister, Nolvia ([phone]), and left a voicemail stating that the social media developer would like to discuss the pts placement.
--- NOTE | 2020-10-13 10:43 | NUR ---
Family Contact: Pts sister, Nolvia ([phone]), contacted the SW and stated that she listened to the voicemail that was sent by the SW and would like to state that she wanted the pt to be discharged to the Board and Care. Pts sister stated that she needs to know as soon as possible as she would like to arrange the pts warehouse order picker time. SW stated that the pt is most likely going to be discharged tomorrow so it would be in the best interest to plan accordingly. Pts sister stated that she was going to have the Board and Care call the SW to determine what they will need for placement and then she will call the SW back to determine what time the pt will be picked up.
--- NOTE | 2020-10-13 12:43 | NUR ---
RN-CO: PATIENT REFUSED CXR AT THIS TIME. WE WILL TRY AGAIN LATER.
[2020-10-13 13:00] VITALS: BP 90/60
--- NOTE | 2020-10-13 14:34 | NUR ---
RN-CO: DR BELTRAN DISCONTINUED HOLD AND ORDER TO DISCHARGE THE PT TELEMETRY DUE TO ABNORMAL EKG. RN PILE DRIVING NOZZLEMAN ALYCIA MADE AWARE. DR BELTRAN COORDINATED WITH DR APARICIO.
--- NOTE | 2020-10-13 15:35 | NUR ---
MS/RN NOTE DR. BELTRAN ORDERED EKG FOR PATIENT, VERBAL ORDERED RECEIVED AND CARRIED OUT AT 0940. RESULTS OF EKG RESULTED, ORDERING MD NOTIFIED OF EKG RESULT. DR. BELTRAN VERBALIZED SHE WOULD TALK WITH DR. APARICIO TO HAVE PATIENT TRANSFERRED TO TELEMETRY. MD ORDERED TO HAVE PATIENT DISCHARGED AND TRANSFERRED OVER TO TELEMETRY. PATIENT WAS DISCHARGED TO TELEMETRY IN STABLE CONDITION PATIENT STATES NO SUICIDAL OR HOMICIDAL IDEATION WELL WELL AUDITORY AND VISUAL HALLUCINATIONS.
--- NOTE | 2020-10-13 16:17 | NUR ---
Clinical Social Work Note Advised sister, Davina ([phone]) that patient was transferred to telemetry.She was planning to pick pt up tomorrow but this teletypewriter installer advised her to wait as she may not be medically clear tomorrow. She was given the direct number for the telemetry floor. Davina will call the floor. Advised Mehreen case management manager re this situation. She will follow up.
[2020-10-13] MEDS ORDERED: LORA-259 PO (19:26)
[2020-10-13] MEDS ORDERED: TEMA15CA PO (19:26)
[2020-10-13] MEDS ORDERED: BENZ0.5T43 PO (19:26)
[2020-10-13] MEDS ORDERED: RISP0.5T65 PO (19:26)
[2020-10-14] MEDS ORDERED: METO50TA16 PO (15:32)
[2020-10-14] MEDS ORDERED: OLAN2.5T3 PO (17:03)
[2020-10-15] MEDS ORDERED: LEVE500T9 PO (14:46)
== END 2020-10-13 15:21 | disposition short-term general hospital (02) | DRG 885 ==
LOC: GPS 19:55
PROVIDERS: ADMIT Psychiatry & Neurology Psychosomatic Medicine; ATTEND Family Medicine
DX: F29 Unspecified psychosis not due to a substance or known physiological condition (principal); F01.50 Vascular dementia, unspecified severity, without behavioral disturbance, psychotic disturbance, mood disturbance, and anxiety; N17.0 Acute kidney failure with tubular necrosis; I11.0 Hypertensive heart disease with heart failure; I21.4 Non-ST elevation (NSTEMI) myocardial infarction; E44.0 Moderate protein-calorie malnutrition; D68.59 Other primary thrombophilia; G93.40 Encephalopathy, unspecified; I50.42 Chronic combined systolic (congestive) and diastolic (congestive) heart failure; E87.0 Hyperosmolality and hypernatremia; F41.9 Anxiety disorder, unspecified; F06.8 Other specified mental disorders due to known physiological condition; M62.562 Muscle wasting and atrophy, not elsewhere classified, left lower leg; M62.561 Muscle wasting and atrophy, not elsewhere classified, right lower leg; I25.2 Old myocardial infarction; F32.9 Major depressive disorder, single episode, unspecified; E78.5 Hyperlipidemia, unspecified; E03.9 Hypothyroidism, unspecified; I69.320 Aphasia following cerebral infarction; S91.312A Laceration without foreign body, left foot, initial encounter; X58.XXXA Exposure to other specified factors, initial encounter; Y92.9 Unspecified place or not applicable; I35.1 Nonrheumatic aortic (valve) insufficiency; K27.9 Peptic ulcer, site unspecified, unspecified as acute or chronic, without hemorrhage or perforation; G40.909 Epilepsy, unspecified, not intractable, without status epilepticus; I48.91 Unspecified atrial fibrillation; Z73.6 Limitation of activities due to disability; Z79.01 Long term (current) use of anticoagulants; Z79.82 Long term (current) use of aspirin; Z79.899 Other long term (current) drug therapy
CPT/HCPCS: 36415; 71045-TC; 80048-TC; 80053-TC; 80061-TC; 82140-TC; 82962-TC; 83735-TC; 85025-TC; 87081-TC; 92526; 92611-TC; 97112-TC; 97116-TC; 97530-TC; J1200; J1630; J3490

== ENCOUNTER 2020-10-13 14:58 | Inpatient (IN) | payer MEDICARE ==
[~2020-10-13] VITALS: Ht 167.6 cm; Wt 50.8 kg
[~2020-10-13 14:58] MED LIST changes: +ACET-868 PO; +ALLA266C2 TP; +ASPI-1420 PO; -DIVA500T2 PO; +HYDR-4209 PO; +LACT-58 PO; +LEVE250T2 PO; +MAG30ORA PO; +MAGN400O6 PO; +MORP1SYR2 IV; +OLAN5TAB3 PO; +ONDA4VIA52 IV; +PANT40TA2 PO; -QUET25TA PO; -TRAZ-252 PO
[2020-10-13 16:00] VITALS: BP 94/57
--- NOTE | 2020-10-13 16:13 | NUR ---
Clinical Social Work Note Pt was transferred to telemetry due to atrial fib. Discharge to [facility] will be cancelled until she is more stable.
--- NOTE | 2020-10-13 16:30 | NUR ---
PROGRAM MANAGER SLP NOTES PATIENT ADMITTED FROM [facility] REPORT GIVEN BY YOVANNY ANTONIO. PATIENT ALERT ORIENTED X 1 WITH PERIOD OF CONFUSION AND EASILY AGITATED. NO ACUTE DISTRESS NOTED. BREATHING UNLABORED. NO SOB NOTED. PATIENT REFUSED SKIN ASSESSMENT. ORIENTED TO THE ROOM , SHOW HOW TO USE CALL LIGHT, PLACED WITHIN REACH. SAFETY MEASURES IN PLACE. WILL CONTINUE TO MONITOR ACCORDINGLY. PATIENT REFUSED IV LINE INSERTED AND MRSA SWAB DONE AT THIS TIME, DR AUSTNI AWARE. NOTIFIED DR AUSTIN REGARDING PATIENT ADMISSION ORDERS AND MEDICATION RECONCILIATION SAID SHE WILL PUT IN ADMISSION ORDERS. SISTER DON AWARE OF PATIENT ARRIVAL IN THE UNIT.
[2020-10-13] MEDS ORDERED: MAG HYDROX/AL HYDROX/SIMETH 30 ML UDC PO PRN ×2 (17:00→17:30)
[2020-10-13] MEDS ORDERED: HYDROCODONE/APAP 5/325MG TABLET PO PRN (17:00)
[2020-10-13] MEDS ORDERED: MAGNESIUM HYDROXIDE 30 ML UDC PO PRN (17:00)
[2020-10-13] MEDS ORDERED: ENOXAPARIN SODIUM 40 MG/0.4 ML DISP.SYRIN SQ SCH (17:00)
[2020-10-13] MEDS ORDERED: ACETAMINOPHEN 325 MG TABLET PO PRN (17:00)
[2020-10-13] MEDS ORDERED: ONDANSETRON HCL/PF 4 MG/2 ML VIAL IVP PRN (17:00)
[2020-10-13] MEDS ORDERED: Z GUARD REMEDY 2 OZ OINT TP PRN ×2 (17:00→17:30)
[2020-10-13] MEDS ORDERED: ZOLPIDEM TARTRATE 5 MG TABLET PO PRN (17:00)
--- NOTE | 2020-10-13 18:00 | NUR ---
INSURANCE CLAIM REPRESENTATIVE NOTES UNABLE TO START IV NS , PATIENT REFUSING IV LINE STARTED , DR CHAVEZ AWARE.
--- NOTE | 2020-10-13 18:44 | NUR ---
MARINE SERVICE OPERATOR NOTES NOTED PATIENT ANXIOUS TRYING TO GET OUT OF BED, NOTIFIED DR AUSTIN WITH NEW ORDER FOR SITTER AND ATIVAN 1 MG IM Q6H PRN, ORDER CLARIFIED AND READ BACK WITH MD, NOTED AND CARRIED OUT.
[2020-10-13 18:46] LABS: CALCIUM, SERUM 8.8 mg/dL (8.5-10.1); CREATININE 1.3 mg/dL (0.6-1.3); POTASSIUM 4.3 mmol/L (3.5-5.1)
--- NOTE | 2020-10-13 18:50 | NUR ---
MS RN NOTES NOTED PATIENT ON INK MAKER WITH AFIB UNCONTROLLED 130, NOTIFIED DR ONEIL SAID HE WILL ORDER MEDICATION AND TRANSFER TO [facility], ORDER CLARIFIED AND READ BACK WITH MD, NOTED AND CARRIED OUT. NO ACUTE DISTRESS NOTED ON PATIENT. WILL CONTINUE TO MONITOR
--- NOTE | 2020-10-13 18:55 | NUR ---
SUPERVISOR PAINT DEPARTMENT NOTES PATIENT TRANSPORTED TO [place] VIA ACLS,NO ACUTE DISTRESS NOTED. REPORT GIVEN TO STAN ANTONIO. ALL BELONGINGS TAKEN WITH THE PATIENT.
[2020-10-13 18:59] LABS: ALBUMIN 2.8 g/dL (3.4-5.0); BILIRUBIN,TOTAL 0.5 mg/dL (0.2-1.0); TOTAL PROTEIN, SERUM 6.6 g/dL (6.4-8.2)
[2020-10-13] MEDS ORDERED: LORAZEPAM INJ 2 MG/ML VIAL IM PRN (19:00)
[2020-10-13] MEDS ORDERED: DIGOXIN INJ 0.5 MG/2 ML AMPUL IV ONE (19:00)
[2020-10-13] MEDS ORDERED: LORA-259 PO (19:26)
[2020-10-13] MEDS ORDERED: RISP0.5T65 PO (19:26)
[2020-10-13] MEDS ORDERED: BENZ0.5T43 PO (19:26)
[2020-10-13] MEDS ORDERED: TEMA15CA PO (19:26)
[2020-10-13] MEDS: IV NS 0.9% 1,000 ML IV SCH (19:47)
[2020-10-13 19:59] LABS: BASOPHILS # (AUTO) 0.1 /CMM (0.0-0.2); BASOPHILS % (AUTO) 0.6 % (0.0-2.0); EOSINOPHILS % (AUTO) 11.7 % (0.0-6.0); HEMATOCRIT 41 % (33-45); HEMOGLOBIN 13.9 g/dL (11.5-14.8); LYMPHOCYTES # (AUTO) 1.3 /CMM (0.8-4.8); LYMPHOCYTES % (AUTO) 11.2 % (20.0-44.0); MEAN CORPUSCULAR HGB CONC 34 g/dl (31.0-36.0); MEAN CORPUSCULAR VOLUME 96 fL (82-100); MONOCYTES # (AUTO) 1.4 /CMM (0.1-1.30); MONOCYTES % (AUTO) 11.8 % (2.0-12.0); NEUTROPHILS # (AUTO) 7.6 /CMM (1.8-8.9); NEUTROPHILS % (AUTO) 64.7 % (43.0-81.0); PLATELET COUNT (AUTO) 171 /CMM (150-450); WHITE BLOOD COUNT (AUTO) 11.8 K/uL (4.3-11.0)
[2020-10-13 20:00] VITALS: BP 140/91
--- NOTE | 2020-10-13 20:00 | NUR ---
RN NOTE RECEIVED PT ALERT, CONFUSED. REORIENTED TO TIME AND PLACE. ON TELE MONITORING SHOWS AFIB UNCONTROLLED WITH HR OF 130S TO 150S. INSERTED IV ON RFA 22G WITH GOOD BLOOD RETURN, FLUSHES WELL. DIGOXIN IV GIVEN ORDERED. IVF NS STARTED AT 100ML/HR. NO SIGNS OF PAIN OR DISTRESS NOTED. PT WITH SITTER AT BEDSIDE. ALL SAFETY MEASURES IMPLEMENTED PER PROTOCOL. WILL CONTINUE TO MONITOR.
[2020-10-13] MEDS ORDERED: DILTIAZEM HCL 30 MG TABLET PO SCH (21:00)
[2020-10-13] MEDS: METOPROLOL TARTRATE 50 MG TABLET PO SCH (21:03)
[2020-10-13] MEDS: LEVETIRACETAM (250 MG) 250 MG TABLET PO SCH (21:03)
[2020-10-13] MEDS: ATORVASTATIN 40 MG TABLET PO SCH (21:03)
--- NOTE | 2020-10-13 22:00 | NUR ---
RN NOTE HR AT 89, TELE SHOWS AFIB CONTROLLED.
[2020-10-14] VITALS (7 sets, daily range): BP systolic 111–140; BP diastolic 60–74
[2020-10-14] MEDS: IV NS 0.9% 1,000 ML IV SCH ×3 (03:32→13:43)
[2020-10-14 05:00] LABS: BILIRUBIN,URINE NEGATIVE (NEGATIVE); COLOR,URINE YELLOW (YELLOW); LEUKOCYTE ESTERASE ,URINE NEGATIVE (NEGATIVE); NITRITE, URINE NEGATIVE (NEGATIVE); PH,URINE 8.5 (5.0-8.0); PROTEIN,URINE NEGATIVE (NEGATIVE); UGLUCOSE NEGATIVE (NEGATIVE); UROBILINOGEN,URINE 0.2 EU/dL (0.2)
[2020-10-14 05:08] LABS: BACTERIA,URINE None seen /HPF (None Seen); RBC,URINE TOO NUMEROUS TO COUN /HPF (0-2); SQUAMOUS EPITHELIAL CELL,UR Few /HPF (None Seen); URINE AMORPHOUS PHOSPHATES Few /HPF (None Seen)
[2020-10-14 06:33] LABS: BASOPHILS # (AUTO) 0.1 /CMM (0.0-0.2); BASOPHILS % (AUTO) 0.6 % (0.0-2.0); EOSINOPHILS % (AUTO) 21.4 % (0.0-6.0); HEMATOCRIT 39 % (33-45); LYMPHOCYTES # (AUTO) 0.9 /CMM (0.8-4.8); LYMPHOCYTES % (AUTO) 10.2 % (20.0-44.0); MEAN CORPUSCULAR HGB CONC 34 g/dl (31.0-36.0); MEAN CORPUSCULAR VOLUME 97 fL (82-100); MONOCYTES # (AUTO) 0.9 /CMM (0.1-1.30); MONOCYTES % (AUTO) 9.8 % (2.0-12.0); NEUTROPHILS # (AUTO) 5.3 /CMM (1.8-8.9); PLATELET COUNT (AUTO) 180 /CMM (150-450); RED BLOOD CELL COUNT(AUTO) 3.98 MIL/uL (4.0-5.2); WHITE BLOOD COUNT (AUTO) 9.2 K/uL (4.3-11.0)
--- NOTE | 2020-10-14 06:38 | NUR ---
RN CLOSING NOTE PT SLEEPING, AROUSES EASILY. NO DISTRESS NOTED. AFIB CONTROLLED THE REST OF THE NIGHT. NO SIGNS OF PAIN OR DISCOMFORT. SITTER AT BEDSIDE. ATTENDED TO NEEDS. EPISODES OF CONFUSION, REDIRECTED. IVF NS INFUSING WELL. NO SIGNS OF INFILTRATION NOTED. KEPT CLEAN AND DRY. WILL ENDORSE TO NEXT SHIFT NURSE FOR STIVEN.
[2020-10-14 07:00] LABS: CALCIUM, SERUM 8.2 mg/dL (8.5-10.1); CREATININE 1.2 mg/dL (0.6-1.3); MAGNESIUM 2.1 mg/dL (1.8-2.4); PHOSPHORUS 3.8 mg/dL (2.5-4.9); POTASSIUM 4.3 mmol/L (3.5-5.1)
--- NOTE | 2020-10-14 07:20 | NUR ---
RN OPENING NOTES RECEIVED PT IN BED. A/O X1, CONFUSED. STABLE ON ROOM AIR. NO SOB OR ANY RESPIRATORY DISTRESS NOTED. ON TELE MONITORING SHOWS AFIB CONTROLLED, HR @70S-80S. IV ACCESS ON RFA #22 INTACT AND PATENT, RUNNING NS @100ML/HR. NO SIGNS OF PAIN OR DISTRESS NOTED. SITTER AT BEDSIDE. SAFETY MEASURES IMPLEMENTED. CALL LIGHT WITHIN REACH. BED LOCKED AND AT LOWEST POSITION WITH SIDE RAILS UP X3. WILL CONTINUE TO MONITOR.
[2020-10-14 07:29] LABS: THYROID STIMULATING HORMONE 18.24 uIU/mL (0.358-3.74)
[2020-10-14] MEDS ORDERED: OLANZAPINE 5 MG TABLET PO SCH ×2 (08:00)
[2020-10-14 08:05] LABS: EOSINOPHILS % (MANUAL) 23 % (0-4); LYMPHOCYTES % (MANUAL) 11 % (16-48); MONOCYTES % (MANUAL) 5 % (0-11.0); NEUTROPHILS % (MANUAL) 60 (42-76); REACTIVE LYMPHOCYTES 1 % (0-0)
[2020-10-14] MEDS: ASPIRIN EC 81 MG TABLET.DR PO SCH (09:15)
[2020-10-14] MEDS: PANTOPRAZOLE 40 MG TABLET.DR PO SCH (09:15)
[2020-10-14] MEDS: LEVOTHYROXINE SODIUM 112 MCG TABLET PO SCH (09:15)
[2020-10-14] MEDS: METOPROLOL TARTRATE 50 MG TABLET PO SCH ×2 (09:16→21:00)
[2020-10-14] MEDS: LEVETIRACETAM (250 MG) 250 MG TABLET PO SCH ×2 (09:16→20:59)
[2020-10-14] MEDS: APIXABAN 5 MG TABLET PO SCH ×2 (09:17→17:52)
[2020-10-14] MEDS: ENSURE ENLIVE 237 ML LIQUID (VANILLA) PO SCH ×3 (09:17→17:46)
--- NOTE | 2020-10-14 11:56 | NUR ---
WOUND CARE CONSULT: PT REFUSED SKIN ASSESSMENT. REVIEWED CHART, NURSING DOCUMENTATION AND PHOTOS WHICH INDICATE RASH/INCONTINENCE ASSOCIATED SKIN DAMAGE TO RT BUTTOCK, PRESENT ON ADMISSION. RECOMMENDATIONS MADE FOR SKIN PROTECTION AND DISCUSSED WITH NURSING STAFF. MD IN AGREEMENT WITH PLAN OF CARE.
[2020-10-14] MEDS ORDERED: METO50TA16 PO (15:32)
--- NOTE | 2020-10-14 17:00 | NUR ---
RN NOTES PT SUPPOSEDLY TO BE DISCHARGED. MEDS IN THE DISCHARGE ORDERS UPSETS THE FAMILY. DR CHAVEZ AND DR BELTRAN INFORMED. PT'S FAMILY SAID THEY WILL MANAGER OUTREACH THE PT TOMORROW INSTEAD. AWARE. CM AWARE.
[2020-10-14] MEDS ORDERED: OLAN2.5T3 PO (17:03)
[2020-10-14] MEDS: CLOTRIMAZOLE 1% 15 GM TUBE TP SCH (17:39)
--- NOTE | 2020-10-14 18:58 | NUR ---
RN CLOSING NOTES NO SIGNIFICANT CHANGES THROUGHOUT THE SHIFT. STABLE ON ROOM AIR. NO SOB OR ANY DISTRESS. NO PAIN REPORTED AT THIS TIME. ALL DUE MEDS GIVEN. NEEDS ATTENDED. SAFETY MEASURES STILL IN PLACE. WILL ENDORSE TO NIGHT NURSE FOR STIVEN. Addendum: 10/15/20 at 0937 by JAZZMIEN PASCUAL RN ADDENDUM see incident report for delayed discharge. Unique Id: [id number]
--- NOTE | 2020-10-14 19:30 | NUR ---
MS RN OPENING NOTES PATIENT IN BED. AWAKE. NO S/S OF DISTRESS. NO C/O PAIN AT THE MOMENT. SITTER IN THE ROOM. R. FA IV RUNNING NS @100 ML/HR SAFETY IN PLACE: BED IN LOWEST, LOCKED POSITION; BED ALARM IN PLACE, CALL LIGHT WITHIN REACH. WILL CONTINUE TO MONITOR.
[2020-10-14] MEDS: ATORVASTATIN 40 MG TABLET PO SCH (22:00)
[2020-10-15 03:32] VITALS: BP 127/90
--- NOTE | 2020-10-15 06:54 | NUR ---
MS RN CLOSING PATIENT IN BED ALERT BUT CONFUSED. SAYING WORDS NOT UNDERSTANDABLE. JUST WAITING FOR SISTER TO DIRECTOR OPERATING ROOM @1500. DISCHARGE ORDER IN PLACE. WILL ENDORSE TO MORNING SHIFT NURSE.
--- NOTE | 2020-10-15 07:21 | NUR ---
MS RN NOTES PATIENT TOOK OFF HER IV LAST NIGHT. CHARGE NURSE. PATIENT FOR D/C HENCE DIDN'T PUT IV AGAIN.
--- NOTE | 2020-10-15 07:30 | NUR ---
RN OPENING NOTES Patient is alert and oriented. Patient is breathing even and unlabored. No s/s of respiratory distress. Per Endorsement, no IV access and md aware. Patient's bed is in lowest and locked position. Call light with in reach.
[2020-10-15] MEDS: IV NS 0.9% 1,000 ML IV SCH (09:00)
[2020-10-15] MEDS: LEVETIRACETAM (250 MG) 250 MG TABLET PO SCH (09:02)
[2020-10-15] MEDS: METOPROLOL TARTRATE 50 MG TABLET PO SCH (09:02)
[2020-10-15] MEDS: PANTOPRAZOLE 40 MG TABLET.DR PO SCH (09:03)
[2020-10-15] MEDS: ASPIRIN EC 81 MG TABLET.DR PO SCH (09:03)
[2020-10-15] MEDS: LEVOTHYROXINE SODIUM 112 MCG TABLET PO SCH (09:05)
[2020-10-15] MEDS: APIXABAN 5 MG TABLET PO SCH (09:09)
[2020-10-15] MEDS: CLOTRIMAZOLE 1% 15 GM TUBE TP SCH (09:10)
[2020-10-15] MEDS: ENSURE ENLIVE 237 ML LIQUID (VANILLA) PO SCH ×2 (09:10→13:00)
[2020-10-15 10:00] VITALS: BP 118/77
--- NOTE | 2020-10-15 11:00 | NUR ---
Spoke to the sister regarding concerns. Per Sister requesting sleep aid for discharge, the cardizem beign discontinued and patient being on keppra.Informed Md Easley and Dr Proctor. Per MD Easley , its ok to d/c on eliquis and metoprolol.
--- NOTE | 2020-10-15 13:02 | NUR ---
MD Proctor made aware regarding family's request to speak to her. Per , she will contact the sister.
--- NOTE | 2020-10-15 14:00 | NUR ---
INFORMED DR BELTRAN REGARDING FAMILY'S REQUEST FOR SLEEP AID, CURRENTLY AWAITING RESPONSE.
--- NOTE | 2020-10-15 14:23 | NUR ---
Per MD Adams, patient is not supposed to be discharged on sleeping aids.
--- NOTE | 2020-10-15 14:35 | NUR ---
Received order from Dr Proctor to change current iv ativan to po ativan 12 mg prn.
[2020-10-15] MEDS ORDERED: LORAZEPAM 1 MG TABLET PO PRN (14:45)
[2020-10-15] MEDS ORDERED: LEVE500T9 PO (14:46)
--- NOTE | 2020-10-15 14:54 | NUR ---
MD CHAVEZ AT BEDSIDE AND INFORMED BRENDAN DE OLIVEIRA CONCERN. PER SHE WILL DISCUSS IT WITH FAMILY.
--- NOTE | 2020-10-15 17:00 | NUR ---
Patient was discharged to home with daughter. Patient was in stable condition. No c/o pain or discomfort. MD Protcor ordered to keep order for [place]. Daughter aware and understands.
== END 2020-10-15 16:00 | DRG 280 ==
LOC: MED 14:58 → TELE 15:26 → TELE-TD 18:55 → MEDSG1 10-14 09:30
PROVIDERS: ADMIT Student in an Organized Health Care Education/Training Program; ATTEND Student in an Organized Health Care Education/Training Program
DX: I48.91 Unspecified atrial fibrillation (principal); G93.41 Metabolic encephalopathy; I21.4 Non-ST elevation (NSTEMI) myocardial infarction; N17.0 Acute kidney failure with tubular necrosis; D68.59 Other primary thrombophilia; I50.42 Chronic combined systolic (congestive) and diastolic (congestive) heart failure; G93.40 Encephalopathy, unspecified; E87.0 Hyperosmolality and hypernatremia; G40.909 Epilepsy, unspecified, not intractable, without status epilepticus; E03.9 Hypothyroidism, unspecified; K27.9 Peptic ulcer, site unspecified, unspecified as acute or chronic, without hemorrhage or perforation; E86.0 Dehydration; E78.5 Hyperlipidemia, unspecified; Z73.6 Limitation of activities due to disability; F29 Unspecified psychosis not due to a substance or known physiological condition; G31.84 Mild cognitive impairment of uncertain or unknown etiology; I11.0 Hypertensive heart disease with heart failure; I69.320 Aphasia following cerebral infarction; Z79.01 Long term (current) use of anticoagulants; Z79.899 Other long term (current) drug therapy; Z87.11 Personal history of peptic ulcer disease; I35.1 Nonrheumatic aortic (valve) insufficiency
CPT/HCPCS: 36415; 71045-TC; 80048-TC; 80053-TC; 81001; 83735-TC; 83880; 84100-TC; 84443-TC; 84484-TC; 85025-TC; G0378; J1160; J2060; J3490; J7030